=== PATIENT | male | born 1965 | race Caucasian/White ===

== ENCOUNTER 2025-02-13 18:48 | Inpatient (IN) | payer SELFPAY ==
[2025-02-13] VITALS (18 sets, daily range): BP systolic 99–164; BP diastolic 57–97; PULSE 89–95; RESP 18–28; TEMP 35.9–36.7; O2SAT 95–100; BMI 44.6
--- NOTE | 2025-02-13 18:51 | RAD_ITS ---
PROCEDURE: CHEST 1 VIEW 02/13/2025 REASON FOR EXAM: NEURO DEFICIT, ACUTE, STROKE SUSPECTED TECHNIQUE: Frontal view of the chest. COMPARISON: None FINDINGS: Lungs: The right hemidiaphragm is elevated, compared to the left of indeterminate significance and acuity. Clinical correlation with breath sounds and diaphragmatic excursion. Right lung volume is low. Mild right infrahilar atelectasis. There is no consolidation. There is no peribronchial thickening. There is no pulmonary vascular redistribution. Pleura: No significant pleural effusion seen. There is no evidence of pneumothorax. Mediastinum: There is no mediastinal widening or mediastinal shift. Heart: The cardiac silhouette appears slightly enlarged.. Ying: The pulmonary ying are not enlarged or retracted. Osseous: No acute fracture is seen. Mild degenerative changes of the spine and shoulders. RAD/Chest 1 View IMPRESSION: No radiographic evidence for acute infiltrate. - Other findings discussed above. Reading Location: [id number]
--- NOTE | 2025-02-13 18:51 | CT_ITS ---
PROCEDURE: STROKE CTA HEAD AND NECK W/CON 02/13/2025 REASON FOR EXAM: NEURO DEFICIT, ACUTE, STROKE SUSPECTED TECHNIQUE: Procedure Code: [id number].ST.HN Modality: CT Procedure: STROKE CTA HEAD AND NECK W/CON Multiplanar Sagittal and Coronal images were obtained. CONTRAST: Please see CT VOLUME: Please see CT mL One or more dose reduction techniques were used (e.g., Automated exposure control, adjustment of the mA and/or kV according to patient size, use of iterative reconstruction technique). RADIATION DOSE SUMMARY: CTDlvol: Please see CT mGy DLP: 900.46 mGycm COMPARISON: Same day noncontrast head CT FINDINGS: Aorta: The entire thoracic aorta is not included on this exam. The visualized thoracic aortic arch is not aneurysmal. No thoracic aortic dissection is seen at the visualized arch. There is atherosclerosis without hemodynamically significant thoracic aortic stenosis. Bovine branch pattern noted off the aortic arch. Visualized proximal great vessels within the superior mediastinum are tortuous suggesting longstanding systemic arterial hypertension. Bovine artery: The bovine artery is patent to its bifurcation. Brachiocephalic artery: The brachiocephalic artery is patent to its bifurcation. Subclavian arteries: The subclavian arteries are patent bilaterally to the proximal axillary arteries. There is atherosclerosis at the proximal subclavian arteries right worse than left but does not appear to be hemodynamically significant. Vertebral arteries: The vertebral arteries are nearly equally dominant and both are patent from their origin to the basilar artery without evidence of abrupt occlusion, hemodynamically significant stenosis or vessel dissection. Common carotid arteries: The common carotid arteries are patent to the common carotid bifurcations. External carotid arteries: The external carotid arteries are patent to their proximal major retromandibular branches. ICA: The internal carotid arteries are patent from their origin to the ICA terminus without evidence of an abrupt occlusion or vessel dissection. There is calcified plaque and intimal thickening at the carotid bulbs left slightly worse than right but no evidence of a hemodynamically significant stenosis bilaterally. There is mild intracranial atherosclerosis without evidence of luminal compromise. Basilar artery: The basilar artery is patent to its distal termination. Posterior cerebral arteries: The left P1 segment is not conclusively identified. The left P2 segment appears to be a direct continuation from the left internal carotid artery consistent with origin. The right P1 and P2 segments are patent. Superior cerebellar arteries: The superior cerebellar artery origins are patent bilaterally. Anteroinferior cerebellar artery origins: The anteroinferior cerebellar artery origins are visualized bilaterally. Posteroinferior cerebellar arteries: The posteroinferior cerebellar artery origins are not clearly visualized bilaterally. This may be indicate anatomic variation, vessel occlusion of indeterminate acuity or technical limitations due to small caliber vessels and limitations of this technique. Anterior cerebral arteries: A1 and A2 segments of the anterior cerebral arteries are patent. Anterior communicating artery: The A-comm is faintly visualized and appears patent. MCA: M1 segment middle cerebral artery enhancement is preserved bilaterally without an abrupt occlusion. Visible M2 segments demonstrate continuous enhancement without evidence of an acute medium vessel occlusion. Soft tissues: Mild prominence of the adenoids could be correlated clinically for significance. No tonsillar or peritonsillar abscess is seen. No prevertebral soft tissue swelling. No posterior paraspinal soft tissue hematoma. No cervical soft tissue emphysema. Thyroid: There is diffuse heterogeneity of the thyroid gland possibly with tiny nodules. Lung apices: No consolidation seen at the visualized lung apices. Osseous: Severe degenerative changes of the spine are noted with disc space loss, prominent anterior osteophytes, posterior bony ridging and facet arthropathy. No acute fracture. CT/STROKE CTA Head AND Neck W/Con IMPRESSION: No evidence of an acute intracranial or cervical large vessel arterial occlusio n. - There is atherosclerosis as discussed above. - Other incidental findings discussed above in detail. Reading Location: [id number]
--- NOTE | 2025-02-13 18:51 | CT_ITS ---
PROCEDURE: STROKE BRAIN/HEAD WITHOUT CONT 02/13/2025 REASON FOR EXAM: NEURO DEFICIT, ACUTE, STROKE SUSPECTED TECHNIQUE: Procedure Code: CTBR.ST Modality: CT Procedure: STROKE BRAIN/HEAD WITHOUT CONT Coronal and Sagittal reconstruction series were provided. One or more dose reduction techniques were used (e.g., Automated exposure control, adjustment of the mA and/or kV according to patient size, use of iterative reconstruction technique. RADIATION DOSE SUMMARY: CTDlvol: 44.99 mGy DLP: 829.85 mGycm COMPARISON: None FINDINGS: Note: Images through the base of the brain and posterior fossa including the brainstem are slightly degraded by beam hardening artifact from the adjacent calvarium. Brain: There is no evidence of acute intracranial hemorrhage. There is no focal extra-axial fluid collection. Appearance of the basal cisterns is unremarkable. There is no Chiari malformation. There is intracranial calcific atherosclerosis. No parenchymal changes are seen suggestive of cytotoxic edema to indicate an acute territorial vascular infarct. Note is made that CT changes may lag clinical findings an acute stroke. If indicated, consider follow-up imaging or diffusion-weighted MRI. There is no midline shift or herniation. No evidence of pneumocephalus. Incidental intracranial calcifications noted. Ventricles: The ventricles do not appear obstructed. Pituitary: The pituitary fossa does not appear enlarged. The pituitary stalk does not appear deviated. Soft tissues: No pericranial scalp hematoma. Osseous: No acute calvarial fracture. No suspicious bone lesion. Visualized paranasal sinuses: Mucosal septation, mucosal thickening and/or trace amount of thickened fluid noted within the left sphenoid sinus. Mastoids: No fluid or opacification of mastoid air cells. Middle ear cavities: The visualized middle ear cavities are not opacified. CT/STROKE Brain/Head without Cont IMPRESSION: No evidence of acute territorial major vessel infarct, mass effect or acute int racranial hemorrhage. - Mild left sphenoid sinusitis. - Other findings and recommendations discussed above. Reading Location: [id number]
--- NOTE | 2025-02-13 18:51 | EKG12_ITS ---
Test Reason : DYSRHYTHMIA Blood Pressure : */* mmHG Vent. Rate : 92 BPM Atrial Rate : 92 BPM P-R Int : 154 ms QRS Dur : 104 ms QT Int : 384 ms P-R-T Axes : 35 58 96 degrees QTcB Int : 474 ms Sinus rhythm with Premature atrial complexes Possible Anterior infarct , age undetermined Abnormal ECG Confirmed by GERMAINE CAZARES, NIK ([id number]), technical editor LIZZETTE PERALTA ([id number]) on 02/14/2025 7:59:29 AM Referred By: Confirmed By: NIK HERRON MD
--- OUTSIDE RECORDS SUMMARY | 2025-02-13 18:57 | XMS RPT_ITS | CCD ---
Author Organization [facility] Inform ion [facility] Care Team Providers Care Javascript Application Developer Name Role Phone Lana CAZARES, Palomo Archibald Unavailable GOLDIE YUN Attending Unavailable GOLDIE YUN Primary Care Unavailable OGLDIE YUN Admitting Unavailable COURT ROBLES - ROOF SERVICE TECHNICIANGOLDIE Primary Care Phys ician COURT ROBLES - ROOF SERVICE TECHNICIANGOLDIE Primary Care U ARACELIS Sparks MD Attending Unavailable COURT ROBLES - ROOF SERVICE TECHNICIAN, GOLDIE Gonzalez Primary Care U WINSOME Shaikh DO Attending Unavailable Medications Current Medications Medication Drug Class(es) Dates Sig (Normalized) Sig (Original) acetaminophen 325 mg / HYDROcodone bitartrate 5 mg oral tablet (1 source) Opioid Agonist Start: 02-24-2023 End: 02-27-2023 take 1 tablet by mouth every six hours as needed for pain [place] 325- 5 mg oral tablet Dose = 1 tab(s), Oral, q6h, PRN for pain, X 3 day(s), # 12 tab(s), 0 Refill(s), Knee sprain, 159 Start Date: 02/24/23 Stop Date: 02/27/23 Status: Ordered Completed/Discontinued Medications Medication Drug Class(es) Dates Sig (Normalized) Sig (Original) glimepiride 4 mg oral tablet (2 sources) Sulfonylurea Start: 02-08-2022 End: 05-09-2022 glimepiride 4 mg oral tablet Dose : 4 mg = 1 tab(s), Oral, qDay, # 90 tab(s), 0 Refill(s), Pharmacy: [id number], 189.5, cm, 02/08/22 10:03:00 EDT, Height, kg, 02/08/22 10:03:00 EDT, Dosing Weight Start Date: 02/08/22 Stop Date: 05/09/22 Status: Ordered Start: 07-08-2018 take 1 tablet by isak th once daily AMARYL 4 MG TABS one tablet by mouth daily GLIMEPIRIDE [id number] Palomo Schwartz MD hydroCHLOROthiazide 12.5 mg / lisinopril 10 mg oral tablet (2 sources) Thiazide Diuretic, Angiotensin Converting Enzyme Inhibitor Start: 02-08-2022 End: 05-09-2022 take 1 tablet by mouth once daily hydrochlorothiazide-lisinopril 12.5 mg-10 mg oral tablet Dose = 1 tab(s), Oral, Daily, # 90 tab(s), 0 Refill(s), Pharmacy: [id number], 189.5, cm, 02/08/22 10:03:00 EDT, Height, kg, 02/08/22 10:03:00 EDT, Dosing Weight Start Date: 02/08/22 Stop Date: 05/09/22 Status: Ordered Start: 07-08-2018 take 1 tablet by isak th once daily LISINOPRIL-HYDROCHLOROTHIAZIDE 20-12.5 M G TABS one tablet by mouth daily LISINOPRIL-HYDROCHLOROTHIAZIDE [id number] Palomo Schwartz MD levothyroxine sodium 0.025 mg oral tablet (2 sources) l-Thyroxine Start: 02-08-2022 End: 05-09-2022 levothyroxine 25 mcg (0.025 mg) oral tablet Dose : 25 mcg = 1 tab(s), Oral, qDay, # 90 tab(s), 0 Refill(s), Pharmacy: [id number], 189.5, cm, 02/08/22 10:03:00 EDT, Height, kg, 02/08/22 10:03:00 EDT, Dosing Weight Start Date: 02/08/22 Stop Date: 05/09/22 Status: Ordered Start: 07-08-2018 take 1 tablet by isak th once daily EUTHYROX 25 MCG TABS one tablet by mouth daily LEVOTHYROXINE SODIUM [id number] Palomo Schwartz MD lovastatin 20 mg oral tablet (2 sources) HMG-CoA Reductase Inhibitor Start: 02-08-2022 End: 05-09-2022 lovastatin 20 mg oral tablet Dose : 20 mg = 1 tab(s), Oral, qDay, # 90 tab(s), 0 Refill(s), Pharmacy: [facility], 189.5, cm, 02/08/22 10:03:00 EDT, Height, kg, 02/08/22 10:03:00 EDT, Dosing Weight Start Date: 02/08/22 Stop Date: 05/09/22 Status: Ordered Start: 07-08-2018 take 1 tablet by isak th once daily ALTOPREV 20 MG [id number] one tablet by mouth daily LOVASTATIN [id number] Palomo Schwartz MD metFORMIN hydrochloride 500 mg oral tablet (2 sources) Biguanide Start: 02-08-2022 End: 05-09-2022 metFORMIN 500 mg oral tablet (IR) Dose : 1,000 mg = 2 tab(s), Oral, BID, # 360 tab(s), 0 Refill(s), Pharmacy: [facility], DM type 2, goal HbA1c Start Date: 02/08/22 Stop Date: 05/09/22 Status: Ordered Start: 07-08-2018 take 1 tablet by isak th twice daily GLUCOPHAGE 500 MG TABS one tablet by mouth twice a day METFORMIN HCL [id number] Palomo Schwartz MD pioglitazone 45 mg oral tablet (2 sources) Peroxisome Proliferator Receptor alpha Agonist, Peroxisome Proliferator Receptor gamma Agonist, Thiazolidinedione Start: 02-08-2022 End: 05-09-2022 pioglitazone 45 mg oral tablet Dose : 45 mg = 1 tab(s), Oral, Daily, # 90 tab(s), 0 Refill(s), Pharmacy: [facility], DM type 2, goal HbA1c Start Date: 02/08/22 Stop Date: 05/09/22 Status: Ordered Start: 07-08-2018 take 1 tablet by isak th once daily ACTOS TABS one tablet by mouth daily PIOGLITAZONE HCL TABS [id number] Palomo Schwartz MD sildenafil 50 mg oral tablet (1 source) Phosphodiesterase 5 Inhibitor Start: 12-22-2020 End: 02-20-2021 Viagra 50 mg oral tablet Dose : 50 mg = 1 tab(s), Oral, qDay, PRN, # 9 tab(s), 1 Refill(s), Pharmacy: [facility], Erectile dysfunction, 189.5, cm, 12/22/20 9:38:00 EDT, Height, kg, 12/22/20 9:38:00 EDT, Dosing Weight Start Date: 12/22/20 Stop Date: 02/20/21 Status: Ordered Vitamin D3 1000 intl units (25 mcg) oral tablet (1 source) Start: 06-30-2020 End: 07-30-2020 Vitamin D3 1000 intl units (25 mcg) oral tablet Dose : 1,000 International_Unit = 1 tab(s), Oral, qDay, # 30 tab(s), 0 Refill(s), Pharmacy: [facility], 189.5, cm, 06/30/20 10:41:00 EST, Height, kg, 06/30/20 10:41:00 EST, Dosing Weight Start Date: 06/30/20 Stop Date: 07/30/20 Status: Ordered Problems Active Problems Problem Classification Problem Date Documented Date Episodic/Chronic Diabetes mellitus without complication (1 source) Type 2 diabetes mellitus 07-16-2019 Chronic Disorders of lipid metabolism (1 source) Hyperlipidemia 07-16-2019 Chronic Essential hypertension (1 source) Hypertensive disorder 07-16-2019 Chronic Osteoarthritis (2 sources) Unilateral primary osteoarthritis, left knee; Translations: [Unilateral primary osteoarthritis, right knee] Onset: 07-08-2018 07-08-2018 Chronic Other upper respiratory infections (2 sources) Acute upper respiratory infection, unspecified; Translations: [Acute upper respiratory infection, unspecified] Onset: 03-28-2020 Episodic Residual codes; unclassified (1 source) Increased body mass index 07-16-2019 Episodic Sprains and strains (1 source) Sprain of knee; Translations: [Sprain of unspecified site of unspecified knee, initial encounter] Onset: 02-24-2023 Episodic Thyroid disorders (1 source) Hypothyroidism 07-16-2019 Chronic Unclassified (1 source) COVID-19; Translations: [COVID-19] Onset: 03-28-2020 Unclassified (1 source) Non-smoker 02-08-2022 Unclassified (1 source) Patient encounter status 07-16-2019 Past or Other Problems Problem Classification Problem Date Documented Da te Episodic/Chronic Unclassified (1 source) Problem Results Test Name Value Interpretation Reference Range Facility XR TIBIA/FIBULA 2 VIEWS VINNIE Mathew 08-14-2024 XR TIBIA/FIBULA 2 VIEWS RIGHT ORIGINAL EXAMINATION: TWO XRAY VIEWS OF THE RIGHT TIBIA/FIBULA 08/14/2024 1:14 pm COMPARISON: Same day tibia fibula radiograph. HISTORY: ORDERING SYSTEM PROVIDED HISTORY: Reason for Exam: foreign body in leg FINDINGS: Interval removal of the previously described lateral foreign body projecting at the inferior 1/3 fibula. No definite residual retained radiopaque foreign body. No acute fracture or dislocation. No other significant change. IMPRESSION: Interval foreign body removal without definite retained radiopaque foreign body. I have reviewed this report and agree with the resident findings and interpretation. Interpreted by: Esvin Bahena MD Preliminary Report By: Elijah Morales Electronically signed By Evsin Bahena MD Dictated Date: 08/14/2024 1:16:25 PM Prelim Date: 08/14/2024 1:18:54 PM Sign Date: 08/14/2024 1:37:09 PM Ordering Provider: WINSOME MALAGON [facility] XR TIBIA/FIBULA 2 VIEWS RIGHT ORIGINAL EXAMINATION: Exam Title:TWO XRAY VIEWS OF THE RIGHT TIBIA/FIBULA Completed Time: 08/14/2024 11:37 am Procedure Description:TIBIA and FIBULA RIGHT COMPARISON: No direct comparison available. HISTORY: ORDERING SYSTEM PROVIDED HISTORY: Reason for Exam: foreign body in leg FINDINGS: Metallic density nail superimposes the distal tibia in the frontal and lateral views. Cortical penetration is not included or excluded by this exam. Mild soft tissue swelling and injury site. Numerous dermal calcifications. No evidence for displaced fracture dislocation or destructive osseous process. Moderate degenerative right knee joint change. IMPRESSION: [] 1. Positive for intact single foreign body. It is unclear if periosteal/cortical penetration has occurred. Close follow-up recommended. Interpreted by: Yaw Chandra DO Preliminary Report By: Yaw Chandra DO Electronically signed By Yaw Chandra DO Dictated Date: 08/14/2024 11:50:44 AM Prelim Date: 08/14/2024 11:53:21 AM Sign Date: 08/14/2024 11:53:21 AM Ordering Provider: WINSOME MALAGON Normal [facility] XR KNEE THREE VIEWS RIGHTon 02-24-2023 XR KNEE THREE VIEWS RIGHT ORIGINAL EXAMINATION: THREE XRAY VIEWS OF THE RIGHT KNEE 02/24/2023 12:31 pm COMPARISON: None. HISTORY: ORDERING SYSTEM PROVIDED HISTORY: Reason for Exam: pt states he twisted rt knee 1 day ago. Nonspecific pain when standing. Pain FINDINGS: There are diffuse soft tissue calcifications. Surgical defects are seen in the patella. There is no acute fracture. The bones are in anatomic alignment. There are mild to moderate tricompartmental degenerative changes. Chondrocalcinosis of the lateral meniscus is noted. Patellar enthesophytes at the insertion of the quadriceps tendon and origin of the patellar tendon are noted. There is a small joint effusion. There is no radiopaque foreign body. IMPRESSION: No acute osseous abnormality. Small joint effusion. Interpreted by: Estevan Bellamy MD Preliminary Report By: Estevan Bellamy MD Electronically signed By Estevan Bellamy MD Dictated Date: 02/24/2023 12:34:06 PM Prelim Date: 02/24/2023 12:36:05 PM Sign Date: 02/24/2023 12:36:05 PM Ordering Provider: DOROTEO ROBERSON Normal [facility] ([place]) CORONAVIRUS PCR [CCL]on COVID 19 Result RUG HOOKER HAND Positive Abnormal [facility] Comment on above: Result Comment: Posi tive for COVID19 (SARS CoV2) by PCR.(*) This test was developed and its performance characteristics determined by [facility]. This test has been authorized by FDA under an Emergency Use Authorization (EUA). This test has been validated in accordance with the FDA's Guidance Document Policy for Diagnostics Testing in Laboratories Certified to Perform High Complexity Testing under CLIA prior to Emergency use Authorization for Coronavirus Disease 2019 during the Public Health Emergency issued on July 24, 2019. [facility] [employer] [address] [place] [address] Marcelino Mejía III, M.D. [id number] Performed By: #### [id number] #### [facility],[address] [place] [address] COVID 19 Source RUG HOOKER HAND Nasopharyngeal Swab Normal [facility] Comment on above: Result Comment: Call ed to and read back by: Tayo Harris [place] [id number] Marie Corrected on 03/30 AT 0756: Previously reported as NASAL Performed By: #### [id number] #### [facility],[address] [place] [address] REF LAB REPORT Positive Normal [facility] Comment on above: Performed By: #### 2 [id number] #### [facility],[address] [place] [address] Coronavirus 2019on 0 COVID 19 Source RUG HOOKER HAND Normal [facility] Comment on above: Result Comment: Naso pharyngeal Swab Called to and read back by: ArminDarioAndrew Harris [place] [id number] Corrected on 03/30 AT 0756: Previously reported as NASAL [id number] Marie Corrected on 03/30 AT 0756: Previously reported as NASAL COVID 19 Result RUG HOOKER HAND Abnormal Negative for COVID19 (SARS CoV2) by PCR. [facility] Comment on above: Result Comment: Posi tive for This test was developed and its performance characteristics determined by [facility] [place]. This test has been authorized by FDA under an Emergency Use Authorization (EUA). This test has been validated in accordance with the FDA's Guidance Document Policy for Diagnostics Testing in Laboratories Certified to Perform High Complexity Testing under CLIA prior to Emergency use Authorization for Coronavirus Disease 2019 during the Public Health Emergency issued on July 24, 2019. COVID19 (SARS This test was developed and its performance characteristics determined by [facility]. This test has been authorized by FDA under an Emergency Use Authorization (EUA). This test has been validated in accordance with the FDA's Guidance Document Policy for Diagnostics Testing in Laboratories Certified to Perform High Complexity Testing under CLIA prior to Emergency use Authorization for Coronavirus Disease 2019 during the Public Health Emergency issued on July 24, 2019. CoV2) by This test was developed and its performance characteristics determined by [facility] [place]. This test has been authorized by FDA under an Emergency Use Authorization (EUA). This test has been validated in accordance with the FDA's Guidance Document Policy for Diagnostics Testing in Laboratories Certified to Perform High Complexity Testing under CLIA prior to Emergency use Authorization for Coronavirus Disease 2019 during the Public Health Emergency issued on July 24, 2019. PCR.(*) This test was developed and its performance characteristics determined by [facility]. This test has been authorized by FDA under an Emergency Use Authorization (EUA). This test has been validated in accordance with the FDA's Guidance Document Policy for Diagnostics Testing in Laboratories Certified to Perform High Complexity Testing under CLIA prior to Emergency use Authorization for Coronavirus Disease 2019 during the Public Health Emergency issued on July 24, 2019. Clinical Summary: HMSPatient IDon 07-08-[address] [facility] Work Phone: Clinical Summary: Scanned RO S Summaryon 07-08-2018 endocrine ROS Complains [place] [facility] Work Phone: endocrine system, review of, comments Diabetes [facility] Work Phone: genitourinary review of systems, E&M Denies [facility] Work Phone: Lymphocytes #/vol (Bld) Denies [facility] Work Phone: ROS cardiovascular E&M Denies [facility] Work Phone: ROS ENT E&M Denies [place] [facility] Work Phone: ROS gastrointestinal E&M Denies [facility] Work Phone: ROS general E&M Denies [facility] Work Phone: ROS Musculoskeletal comments Joint Pain,Stiffness,Arthrit is [facility] Work Phone: ROS musculoskeletal E&M Complains [facility] Work Phone: ROS neurological E&M Denies [facility] Work Phone: ROS psychiatric E&M Denies [facility] Work Phone: ROS Pulmonary comment Sleep Apnea [facility] Work Phone: ROS pulmonary E&M Complains [facility] Work Phone: ROS skin E&M Denies [facility] Work Phone: Office Visit: New/Est - 1st visit with physician, Rm: 107-08-2018 NEGATED: Highlighted rowProtein mass conc Done [place] [facility] Work Phone: NEGATED: Highlighted rowTobacco smoking status NHIS Tobacco smoking status NHIS [facility] Work Phone: NEGATED: Highlighted rowxray history of the bilateral knee on 06/17/2018 at [place] [facility] Work Phone: Clinical Summary: Scanned Hi story Summaryon 07-06-2018 cause of , father Heart attack [facility] Work Phone: cause of , mother Cancer [facility] Work Phone: Data entered by patient, allergy list I don't have any Drug Allergies [facility] Work Phone: data entered by patient, Employer Name employed [facility] Work Phone: Data entered by patient, history of past surgeries Foot surgeryKnee surgery otherTonsillectomy [facility] Work Phone: data entered by patient, mother's medical history Cancer [facility] Work Phone: data entered by patient, past medical history ArthritisDiabetes - insulin dependentDiabetic neuropathyHigh blood pressureObesity [facility] Work Phone: data entered by patient, social history, marital status [facility] Work Phone: data entered by patient, social history, 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 Work Phone: father of patient is alive or [facility] Work Phone: Housing Type: apartment, house, long-term, trailer, none house [facility] Work Phone: housing unit size (asthma environmental history, housing) (from single family to don't know) 1 floor [facility] Work Phone: medical history of patient's brother(s) My brother's health history is unknown [facility] Work Phone: medical history of patient's sister My sister's health history is unknown [facility] Work Phone: mother of patient is alive or [facility] Work Phone: Number of dependent children No [facility] Work Phone: Vital Signs Date Time Vital Sign Value Performing Clinician Facility 02-24-2023 12:04-0400 Body height 183 cm ARACELIS LIZ MD [facility] 02-24-2023 12:04-0400 Body temperature 98.06 [degF] ARACELIS LIZ MD [facility] 02-24-2023 12:04-0400 Body weight 159 kg ARACELIS LIZ MD [facility] 02-24-2023 12:04-0400 Diastolic Blood Pressure Non-Invasive 82 1 ARACELIS LIZ MD [facility] 02-24-2023 12:04-0400 Heart rate 91 /min ARACELIS LIZ MD [facility] 02-24-2023 12:04-0400 Respiratory rate 20 /min ARACELIS LIZ MD [facility] 02-24-2023 12:04-0400 Systolic Blood Pressure Non-Invasive 156 1 ARACELIS LIZ MD [facility] NEGATED: Highlighted [id number] 08:21-0500 BMI (Body Mass Index) 56.83 kg/m2 Mukul Stewart LPN [facility] Work Phone: NEGATED: Highlighted [id number] 08:21-0500 BP Diastolic 72 mm[Hg] Mukul Stewart LPN [facility] Work Phone: NEGATED: Highlighted [id number] 08:21-0500 BP Systolic 112 mm[Hg] Mukul Stewart PORCELAIN FINISHER [facility] Work Phone: NEGATED: Highlighted [id number] 08:21-0500 Height 180.34 cm Mukul Stewart PORCELAIN FINISHER [facility] Work Phone: NEGATED: Highlighted [id number] 08:21-0500 Height 180 cm Mukul Stewart PORCELAIN FINISHER [facility] Work Phone: NEGATED: Highlighted [id number] 08:21-0500 Pulse (Heart Rate) 78 /min Mukul Stewart LPN [facility] Work Phone: NEGATED: Highlighted [id number] 08:21-0500 Weight 184.16 kg Mukul Stewart PORCELAIN FIN[employer]ER [facility] Work Phone: NEGATED: Highlighted [id number] 08:21-0500 Weight 185 kg Mukul Stewart HERBER [facility] Work Phone: Encounters Encounter Date Encounter Type Care Provider Facility Start: 08-14-2024 End: 08-14-2024 Emergency department patient visit GOLDIE YUN CATALYST CONCENTRATION OPERATOR - ROOF SERVICE TECHNICIAN Facility:[facility] Start: 02-24-2023 End: 02-24-2023 Emergency department patient visit GOLDIE YUN CATALYST CONCENTRATION OPERATOR - ROOF SERVICE TECHNICIAN Facility: Start: 02-24-2023 End: 02-24-2023 Emergency department patient visit ARACELIS LIZ MD [facility] Start: 03-28-2020 End: 03-28-2020 Patient encounter procedure GOLDIE YUN [facility] Start: 07-08-2018 End: 07-08-2018 Patient encounter procedure Palomo Schwartz MD Work Phone: [facility] Work Phone: Procedures Date Procedure Procedure Detail Performing Clinician Start: 07-08-2018 End: 07-08-2018 Blood pressure within normal parameters - no follow-up required Palomo Schwartz MD Work Phone: Start: 07-08-2018 End: 07-08-2018 BMI documented as above normal parameters - follow-up documented Palomo Schwartz MD Work Phone: Start: 07-08-2018 End: 07-08-2018 Documentation of current medications Palomo Schwartz MD Work Phone: Start: 07-08-2018 End: 07-08-2018 Osteoarthritis assess Palomo novak MD Work Phone: Start: 07-08-2018 End: 07-08-2018 Pain assessment documented as positive - follow-up documented Palomo Schwartz MD Work Phone: Start: 07-08-2018 End: 07-08-2018 Tobacco non-user Palomo Sue i, MD Work Phone: Arthroscopy of knee ARACELIS MARTI MD Comment on above: left meniscal repair Entire toe (body structure) ARACELIS LIZ MD Comment on above: right 3rd toe nail r emoved Tonsillectomy and adenoidectomy ARACELIS LIZ MD Plan of Treatment Date Care Activity Detail Author Start: 07-08-2018 End: 07-08-2018 Appointment Appointment [facility] Work Phone: Immunizations Immunization Date Immunization Notes Care Provider Fa cili 04-23-2018 influenza virus vaccine, unspecified formulation ARACELIS LIZ MD [facility] 04-25-2017 influenza virus vaccine, unspecified formulation ARACELIS LIZ MD [facility] No information available. Mukul Stewart LPN [facility] Work Phone: Payers Date Payer Category Payer Self-pay 1965 Unknown [id number] 1965 Unknown [id number] 1965 Unknown [id number] Unknown [id number] Social History Date Type Detail Facility Start: 11-19-2019 Tobacco smoking status Never smoked tobacco (finding) [facility] Sex Assigned At Male [facility] NEGATED: Highlighted rowStart: 07-08-2018 End: 07-08-2018 Alcohol use ETOH USE No [facility] Work Phone: NEGATED: Highlighted rowStart: 07-08-2018 End: 07-08-2018 Details of drug misuse behavior DRUG USE No [facility] Work Phone: NEGATED: Highlighted rowStart: 07-08-2018 End: 07-08-2018 Assertion Former smoker [facility] [place] [facility] Work Phone: Medical Equipment Procedure Code Equipment Code Equipment Origin al Text Equipment Identifier Dates See Instructions , Si pen needle daily seconday to DM#2 ICD-10 250.00 Quantity: 1 box of 32G/5mm pen needles. RF: 6, # 1 EA, 6 Refill(s), Pharmacy: [facility], DM type 2, goal HbA1c < 7%, 189.5, cm, 06/30/20 10:41:00 EST, Height, 192, kg, 06/30/20 10:41:00 EST, Dosing Weight Start: 06-30-2020 Functional Status Date Assessment Result Facility 02-24-2023 Functional Status Up ad toby [facility] 02-24-2023 Functional Status Standard Safet y ID band on, Call device within reach, Bed in low position, Wheels locked, Visitor at bedside [facility] [facility] Mental Status Date Assessment Result Facility 02-24-2023 Mental Status Orientation Oriented x 4 [facility] Discharge instructions 02-24-2023 Note Date & Type Note Facility 02-24-2023 Hospital Discharg e instructions Patient Education 02/24/2023 12:58:49 Knee Sprain Knee Sprain A sprain is an injury to the ligaments or capsule that holds a joint together. There are no broken bones. Most sprains take 3 to 6 weeks to heal. If it a severe sprain where the ligament is completely torn, it can take months to recover. Most knee sprains are treated with a splint, knee immobilizer brace, or elastic wrap for support. Severe sprains may rarely require surgery. Home care Stay off the injured leg as much as possible until you can walk on it without pain. If you have a lot of pain with walking, crutches or a walker may be prescribed. (These can be rented or purchased at many pharmacies and surgical or orthopedic supply stores). Follow your healthcare provider's advice about when to begin putting weight on that leg. Keep your leg elevated to reduce pain and swelling. When sleeping, place a pillow under the injured leg. When sitting, support the injured leg so it is above heart level. This is very important during the first 48 hours. Apply an ice pack over the injured area for 15 to 20 minutes every 3 to 6 hours. You should do this for the first 24 to 48 hours. You can make an ice pack by filling a plastic bag that seals at the top with ice cubes and then wrapping it with a thin towel. Continue to use ice packs for relief of pain and swelling as needed. As the ice melts, be careful to avoid getting your wrap, splint, or cast wet. After 48 hours, apply heat (warm shower or warm bath) for 15 to 20 minutes several times a day, or alternate ice and heat. You can place the ice pack directly over the splint. If you have to wear a ewta-iss-jjkr knee brace, you can open it to apply the ice pack, or heat, directly to the knee. Never put ice directly on the skin. Always wrap the ice in a towel or other type of cloth. You may use shcr-kqp-mytyakl pain medicine to control pain, unless another pain medicine was prescribed. If you have chronic liver or kidney disease or ever had a stomach ulcer or gastrointestinal bleeding, talk with your healthcare provider before using these medicines. If you were given a splint, keep it completely dry at all times. Bathe with your splint out of the water, protected with 2 large plastic bags, sealed with rubber bands or tape at the top end. If a fiberglass splint gets wet, you can dry it with a dining chair seat cushion trimmer set to cool. If you have a webo-ggp-iwen knee brace, you can remove this to bathe, unless told otherwise. Follow-up care Follow up with your doctor as advised. Any X-rays you had today don t show any broken bones, breaks, or fractures. Sometimes fractures don t show up on the first X-ray. Bruises and sprains can sometimes hurt as much as a fracture. These injuries can take time to heal completely. If your symptoms don t improve or they get worse, talk with your doctor. You may need a repeat X-ray. If X-rays were taken, you will be told of any new findings that may affect your care. Call 911 Call 911 if you have: Shortness of breath Chest pain When to seek medical advice Call your healthcare provider right away if any of these occur: The splint or knee immobilizer brace becomes wet or soft The fiberglass cast or splint remains wet for more than 24 hours Pain or swelling increases The injured leg or toes become cold, blue, numb, or tingly [id number] [employer]. [address] [place] [address]. All rights reserved. This information is not intended as a substitute for professional medical care. Always follow your healthcare professional's instructions. Follow Up Care 02/24/2023 11:57:15 With:Go to emergency room if symptoms worsen Address:Unknown When:2-4 days With:GOLDIE YUN APRN - ROOF SERVICE TECHNICIAN Address: [address] [place] [address]- When:2-4 days [facility] Clinical Note 02-24-2023 Note Date & Type Note Facility 02-24-2023 Note Discharge Instructions Thank you for allowing [facility] to assist you with your healthcare needs. The following is important discharge information regarding your hospital visit. Diagnosis from Today's Visit Knee pain-swelling Knee sprain What to Do Next Instructions from Your Care Team No qualifying data available. Post Acute Orders No qualifying data available. You Need to Schedule the Following Appointments Follow Up with Go to emergency room if symptoms worsen When Within 2-4 days Follow Up with GOLDIE YUN APRN ROOF SERVICE TECHNICIAN When Within 2-4 days Where: [address] [place] [address]- Allergies NKA Medications Please ask your primary doctor or pharmacist before taking any other medication not listed, including over the counter drugs, herbal medications, vitamins and or supplements as they may interact with your home medications. What How Much When Why Instructions Last Dose New acetaminophen-hydrocodone ([place] 325- 5 mg oral tablet) 1 tab(s) by mouth Every 6 hours as needed for for pain Knee sprain Duration: 3 Days Printed Prescription Unchanged cholecalciferol (Vitamin D3 1000 intl units (25 mcg) oral tablet) 1 tab(s) by mouth Once a day Duration: 30 Days Unchanged DME (Pen needles 5 mm) See instructions DM type 2, goal HbA1c < 7% Si pen needle daily seconday to DM#2 ICD-10 250.00 Quantity: 1 box of 32G/ 5mm pen needles. RF: 6 Unchanged glimepiride (glimepiride 4 mg oral tablet) 1 tab(s) by mouth Once a day Duration: 90 Days Unchanged hydrochlorothiazide-lisinopril (hydrochlorothiazide-lisinopril 12.5 mg-10 mg oral tablet) 1 tab(s) by mouth Every day Duration: 90 Days Unchanged levothyroxine (levothyroxine 25 mcg (0.025 mg) oral tablet) 1 tab(s) by mouth Once a day Duration: 90 Days Unchanged lovastatin (lovastatin 20 mg oral tablet) 1 tab(s) by mouth Once a day Duration: 90 Days Unchanged metFORMIN (metFORMIN 500 mg oral tablet (IR)) 2 tab(s) by mouth Two (2) times a day DM type 2, goal HbA1c < 7% Duration: 90 Days Unchanged pioglitazone (pioglitazone 45 mg oral tablet) 1 tab(s) by mouth Every day DM type 2, goal HbA1c < 7% Duration: 90 Days Unchanged sildenafil (Viagra 50 mg oral tablet) 1 tab(s) by mouth Once a day Erectile dysfunction Duration: 30 Days PRN Please take this list to your next doctor s visit. Bring all medications you take, including over the counter medications, herbals and other supplements with you to your doctor s visit. Patients and families are reminded to discard old lists and to update any records with all medication providers or retail pharmacies. Medication Leaflets acetaminophen and hydrocodone (a SEET a MIN oh fen and lucie HUANG done) Lortab Elixir, Verdrocet What is the most important information I should know about acetaminophen and hydrocodone? MISUSE OF OPIOID MEDICINE CAN CAUSE ADDICTION, OVERDOSE, OR . Keep the medication in a place where others cannot get to it. Taking opioid medicine during may cause life-threatening withdrawal symptoms in the . Fatal side effects can occur if you use opioid medicine with alcohol, or with other drugs that cause drowsiness or slow your breathing. Stop taking this medicine and call your doctor right away if you have skin redness or a rash that spreads and causes blistering and peeling. What is acetaminophen and hydrocodone? Acetaminophen and hydrocodone is a combination medicine used to relieve moderate to severe pain. Acetaminophen and hydrocodone contains an opioid medicine, and may be habit-forming. Acetaminophen and hydrocodone may also be used for purposes not listed in this medication guide. What should I discuss with my healthcare provider before taking acetaminophen and hydrocodone? You should not use this medicine if you are allergic to acetaminophen or hydrocodone, or if you have: severe asthma or breathing problems; or a blockage in your stomach or intestines. Tell your doctor if you have ever had: breathing problems, sleep apnea (breathing stops during sleep); liver disease; a drug or alcohol addiction; kidney disease; a head injury or seizures; urination problems; or problems with your thyroid, pancreas, or gallbladder. If you use opioid medicine while you are , your baby could become dependent on the drug. This can cause life-threatening withdrawal symptoms in the baby after it is born. Babies born dependent on opioids may need medical treatment for several weeks. Ask a doctor before using opioid medicine if you are . Tell your doctor if you notice severe drowsiness or slow breathing in the nursing baby. How should I take acetaminophen and hydrocodone? Follow all directions on your prescription label. Never take this medicine in larger amounts, or for longer than prescribed. An overdose can damage your liver or cause . Tell your doctor if you feel an increased urge to use more of this medicine. Never share this medicine with another person, especially someone with a history of drug abuse or addiction. MISUSE CAN CAUSE ADDICTION, OVERDOSE, OR . Keep the medicine in a place where others cannot get to it. Selling or giving away this medicine is against the law. Measure liquid medicine carefully. Use the dosing syringe provided, or use a medicine dose-measuring device (not a kitchen spoon). If you need surgery or medical tests, tell the doctor ahead of time that you are using this medicine. You should not stop using this medicine suddenly. Follow your doctor's instructions about tapering your dose. Store at room temperature away from moisture and heat. Keep track of your medicine. You should be aware if anyone is using it improperly or without a prescription. Do not keep leftover opioid medication. Just one dose can cause in someone using this medicine accidentally or improperly. Ask your pharmacist where to locate a drug take-back disposal program. If there is no take-back program, flush the unused medicine down the toilet. What happens if I miss a dose? Since this medicine is used for pain, you are not likely to miss a dose. Skip any missed dose if it is almost time for your next dose. Do not use two doses at one time. What happens if I overdose? Seek emergency medical attention or call the Poison Help line at . An overdose of this medicine can be fatal, especially in a child or other person using the medicine without a prescription. Overdose symptoms may include nausea, vomiting, sweating, severe drowsiness, pinpoint pupils, slow breathing, or no breathing. Your doctor may recommend you get naloxone (a medicine to reverse an opioid overdose) and keep it with you at all times. A person caring for you can give the naloxone if you stop breathing or don't wake up. Your caregiver must still get emergency medical help and may need to perform CPR (cardiopulmonary resuscitation) on you while waiting for help to arrive. Anyone can buy naloxone from a pharmacy or local health department. Make sure any person caring for you knows where you keep naloxone and how to use it. What should I avoid while taking acetaminophen and hydrocodone? Avoid driving or operating machinery until you know how this medicine will affect you. Dizziness or drowsiness can cause falls, accidents, or severe injuries. Do not drink alcohol. Dangerous side effects or could occur. Ask a doctor or pharmacist before using any other medicine that may contain acetaminophen (sometimes abbreviated as APAP). Taking certain medications together can lead to a fatal overdose. What are the possible side effects of acetaminophen and hydrocodone? Get emergency medical help if you have signs of an allergic reaction: hives; difficulty breathing; swelling of your face, lips, tongue, or throat. Opioid medicine can slow or stop your breathing, and may occur. A person caring for you should give naloxone and/or seek emergency medical attention if you have slow breathing with long pauses, blue colored lips, or if you are hard to wake up. In rare cases, acetaminophen may cause a severe skin reaction that can be fatal. This could occur even if you have taken acetaminophen in the past and had no reaction. Stop taking this medicine and call your doctor right away if you have skin redness or a rash that spreads and causes blistering and peeling. Call your doctor at once if you have: noisy breathing, sighing, shallow breathing, breathing that stops; a light-headed feeling, like you might pass out; liver problems--nausea, upper stomach pain, tiredness, loss of appetite, dark urine, nura-colored stools, jaundice (yellowing of the skin or eyes); low cortisol levels-- nausea, vomiting, loss of appetite, dizziness, worsening tiredness or weakness; o high levels of serotonin in the body--agitation, hallucinations, fever, sweating, shivering, fast heart rate, muscle stiffness, twitching, loss of coordination, nausea, vomiting, diarrhea. Serious breathing problems may be more likely in older adults and in those who are debilitated or have wasting syndrome or chronic breathing disorders. Common side effects include: dizziness, drowsiness, feeling tired; nausea, vomiting, stomach pain; constipation; or headache. This is not a complete list of side effects and others may occur. Call your doctor for medical advice about side effects. You may report side effects to FDA at 2-761-MGF-9312. What other drugs will affect acetaminophen and hydrocodone? You may have breathing problems or withdrawal symptoms if you start or stop taking certain other medicines. Tell your doctor if you also use an antibiotic, antifungal medication, heart or blood pressure medication, seizure medication, or medicine to treat HIV or hepatitis C. Opioid medication can interact with many other drugs and cause dangerous side effects or . Be sure your doctor knows if you also use: cold or allergy medicines, bronchodilator asthma/COPD medication, or a diuretic ('water pill'); medicines for motion sickness, irritable bowel syndrome, or overactive bladder; other opioids--opioid pain medicine or prescription cough medicine; a sedative like Valium--diazepam, alprazolam, lorazepam, Xanax, Klonopin, Versed, and others; drugs that make you sleepy or slow your breathing--a sleeping pill, muscle relaxer, medicine to treat mood disorders or mental illness; drugs that affect serotonin levels in your body--a stimulant, or medicine for depression, Parkinson's disease, migraine headaches, serious infections, or nausea and vomiting. This list is not complete. Other drugs may affect acetaminophen and hydrocodone, including prescription and dqix-iho-nhiqyes medicines, vitamins, and herbal products. Not all possible interactions are listed here. Where can I get more information? Your doctor or pharmacist can provide more information about acetaminophen and hydrocodone. Remember, keep this and all other medicines out of the reach of children, never share your medicines with others, and use this medication only for the indication prescribed. Every effort has been made to ensure that the information provided by [employer]. ('[employer]') is accurate, up-to-date, and complete, but no guarantee is made to that effect. Drug information contained herein may be time sensitive. [employer] information has been compiled for use by healthcare practitioners and consumers in the [place] and therefore [employer] does not warrant that uses outside of the [place] are appropriate, unless specifically indicated otherwise. [employer] (now [employer]s drug information does not endorse drugs, diagnose patients or recommend therapy. [employer] drug information is an informational resource designed to assist licensed healthcare practitioners in caring for their patients and/or to serve consumers viewing this service as a supplement to, and not a substitute for, the expertise, skill, knowledge and judgment of healthcare practitioners. The absence of a warning for a given drug or drug combination in no way should be construed to indicate that the drug or drug combination is safe, effective or appropriate for any given patient. [employer] does not assume any responsibility for any aspect of healthcare administered with the aid of information [employer] provides. The information contained herein is not intended to cover all possible uses, directions, precautions, warnings, drug interactions, allergic reactions, or adverse effects. If you have questions about the drugs you are taking, check with your doctor, nurse or pharmacist. Copyright 9707-1081 [employer]. Version: 19.. Revision Date: 01/13/2023. Education Materials Knee Sprain A sprain is an injury to the ligaments or capsule that holds a joint together. There are no broken bones. Most sprains take 3 to 6 weeks to heal. If it a severe sprain where the ligament is completely torn, it can take months to recover. Most knee sprains are treated with a splint, knee immobilizer brace, or elastic wrap for support. Severe sprains may rarely require surgery. Home care Stay off the injured leg as much as possible until you can walk on it without pain. If you have a lot of pain with walking, crutches or a walker may be prescribed. (These can be rented or purchased at many pharmacies and surgical or orthopedic supply stores). Follow your healthcare provider's advice about when to begin putting weight on that leg. Keep your leg elevated to reduce pain and swelling. When sleeping, place a pillow under the injured leg. When sitting, support the injured leg so it is above heart level. This is very important during the first 48 hours. Apply an ice pack over the injured area for 15 to 20 minutes every 3 to 6 hours. You should do this for the first 24 to 48 hours. You can make an ice pack by filling a plastic bag that seals at the top with ice cubes and then wrapping it with a thin towel. Continue to use ice packs for relief of pain and swelling as needed. As the ice melts, be careful to avoid getting your wrap, splint, or cast wet. After 48 hours, apply heat (warm shower or warm bath) for 15 to 20 minutes several times a day, or alternate ice and heat. You can place the ice pack directly over the splint. If you have to wear a cvlm-wza-jimv knee brace, you can open it to apply the ice pack, or heat, directly to the knee. Never put ice directly on the skin. Always wrap the ice in a towel or other type of cloth. You may use dmet-kfp-udwumzj pain medicine to control pain, unless another pain medicine was prescribed. If you have chronic liver or kidney disease or ever had a stomach ulcer or gastrointestinal bleeding, talk with your healthcare provider before using these medicines. If you were given a splint, keep it completely dry at all times. Bathe with your splint out of the water, protected with 2 large plastic bags, sealed with rubber bands or tape at the top end. If a fiberglass splint gets wet, you can dry it with a dining chair seat cushion trimmer set to cool. If you have a tvgl-jng-vdmq knee brace, you can remove this to bathe, unless told otherwise. Follow-up care Follow up with your doctor as advised. Any X-rays you had today don t show any broken bones, breaks, or fractures. Sometimes fractures don t show up on the first X-ray. Bruises and sprains can sometimes hurt as much as a fracture. These injuries can take time to heal completely. If your symptoms don t improve or they get worse, talk with your doctor. You may need a repeat X-ray. If X-rays were taken, you will be told of any new findings that may affect your care. Call 911 Call 911 if you have: Shortness of breath Chest pain When to seek medical advice Call your healthcare provider right away if any of these occur: The splint or knee immobilizer brace becomes wet or soft The fiberglass cast or splint remains wet for more than 24 hours Pain or swelling increases The injured leg or toes become cold, blue, numb, or tingly [phone] [employer]. [address] [place] [address]. All rights reserved. This information is not intended as a substitute for professional medical care. Always follow your healthcare professional's instructions. Additional Information VACCINATE! IT SAVES LIVES! Members of the community who have not yet received the COVID-19 vaccine and would like to receive it can visit one of [facility] vaccine clinics. There are many vaccine clinic locations within the [facility]. For locations and available times, please visit [email or web address]/. It is important to note that some COVID mobile vaccine clinics are held outdoors and may be canceled in rainy or stormy conditions. To learn more about pediatric vaccinations (ages 5-11), we invite you to visit the [facility] webpage. [email or web address] -[email or web address] To learn more about the COVID-19 vaccine, we invite you to visit the CDC website for a list of frequently asked questions. https://www.cdc.gov/coronavirus/2019-n cov/vaccines/faq.html [employer] [facility] Patient Portal Access Instructions: Stay connected with your healthcare team and access your personal medical information anytime with the [employer] [facility] Patient Portal. If you would like a full copy of your medical records please contact the [facility] Medical Records Department Friday through Friday between 8a.m. and 4:30p.m. Please follow the directions below to access the portal: 1.Access the email account you provided upon registration to the [facility].2.Look for an invitation email from [facility].3.Open the email and access the invitation link: Accept Invitation to [facility]4.Fill in the required garland to create your account. Sign into [email or web address] with your username and password that you created in the above steps to stay up to date. You can then view a summary of results, a summary of your visits, and the ability to download your summaries to your computer or send the information securely to a physician. Remember that your healthcare information is confidential, so carefully consider who you will allow to register on the [employer] Patient Portal for access to your information. You can also access the [employer] Patient Portal on the [employer] evita. Simply click on Health Records under Health Data and then click on the [employer] logo. HOW TO SAFELY DISPOSE OF PRESCRIPTION MEDICATIONS Please use one of the following methods to safely dispose of your unused medications. 1.Use a drug disposal kit: the drug disposal pouch allows you to safely discard your old and unused drugs. Ask your nurse to give you one when you are discharged.2.Visit a local take-back location: Many local pharmacies and police departments have programs that collect old and unwanted prescription drugs. Call your local pharmacy or go to http://[employer].Virax/1B7Po4m to find one close to you.3.Make use of household items: Use cat litter or old coffee grounds to dispose medications if other options are not available. Mix your drugs with these household products, seal them in an airtight container and throw it into the garbage. Call [facility]: [phone] to be sure your drugs can be disposed of in this way. Some medicines may require a different approach.4.Never flush your medications down the toilet. IF YOU HAVE BEEN PRESCRIBED AN OPIOIDS FOR PAIN If you have been prescribed an opioid (such as hydrocodone, oxycodone or morphine), it is critical to understand the possible side effects and risks of opioid pain medications. Even when taken as directed, opioids can have several side effects including: Tolerance, meaning you might need to take more of a medication for the same pain relief. Nausea, vomiting and/or constipation. Sleepiness, dizziness, dry mouth, confusion, depression or itching. Physical dependence, meaning you have withdrawal symptoms when a medication is stopped ? this can develop within a few days. KNOW YOUR RESPONSIBILITIES It is important to know exactly how much and how often to take the opioid pain medications you are prescribed. Never take opioids in higher amounts or more often than prescribed. Do not combine opioids with alcohol or other drugs that cause drowsiness, such as benzodiazepines, also known as benzos, including diazepam and alprazolam, muscle relaxants or sleep aids. Never sell or share prescription opioids. This is illegal. Store opioids in a secure place and out of reach of others (including children, family, friends and visitors). The last page(s) of this document has been signed and retained as a CHART COPY Signatures Patient Education Materials Knee Sprain Medication Leaflets acetaminophen and hydrocodone My discharge plan and instructions have been reviewed and explained to me and I,JOYCE VILA understand my current condition and have read and understand these discharge instructions. I have received a written copy of the plan/instructions. If I have questions, I am aware that I should contact my doctor. 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 HISTORY: ORDERING SYSTEM PROVIDED HISTORY: Reason for Exam: pt states he twisted rt knee 1 day ago. Nonspecific pain when standing. Pain FINDINGS: There are diffuse soft tissue calcifications. Surgical defects are seen in the patella. There is no acute fracture. The bones are in anatomic alignment. There are mild to moderate tricompartmental degenerative changes. Chondrocalcinosis of the lateral meniscus is noted. Patellar enthesophytes at the insertion of the quadriceps tendon and origin of the patellar tendon are noted. There is a small joint effusion. There is no radiopaque foreign body. IMPRESSION: No acute osseous abnormality. Small joint effusion. Interpreted by: Estevan Bellamy MD Preliminary Report By: Estevan Bellamy MD Electronically signed By Estevan Bellamy MD Dictated Date: 02/24/2023 12:34:06 PM Prelim Date: 02/24/2023 12:36:05 PM Sign Date: 02/24/2023 12:36:05 PM Ordering Provider: DOROTEO ROBERSON [facility] Evaluation + Plan note 08-08-2022 Laboratory Note Date & Type Note Facility 08-08-2022 Evaluation + Plan note Future Scheduled TestsThyroid Stimulating Hormone 08/08/22Free T4 08/08/22A1C Hemoglobin 05/10/22A1C Hemoglobin 08/08/22Lipid Profile 08/08/22Microalbumin Level Urine 08/08/22Complete Metabolic Panel 08/08/22 [facility] Hospital course Narrative Note Date & Type Note Facility Hospital course Narrative No data available for this section [facility] Chief Complaint Chief Complaint Description Start Date bilateral knee pain Preliminary chief co mplaint data, not yet signed by the author as of Instructions Instruction Description Start Date CompletedPatient advised to follow-up with Primary Care Physician for BMI management. Advance Directives There may be information available, but it has not been provided by the sender. No Advanced Directives Records FoundNo Advanced Directives Records FoundNo Advanced Directives Records FoundNo Advanced Directives Records Found Assessments There may be information available, but it has not been provided by the sender. Review of System There may be information available, but it has not been provided by the sender. Family History There may be information available, but it has not been provided by the sender.No Family History Records FoundNo Family History Records Found No data available for this section No Family History Records FoundNo Family History Records Found History of Present Illness There may be information available, but it has not been provided by the sender. Summary Purpose Additional Source Comments Reason for Visit (unrecogniz ed section and content) Reason For Visit Description New/Est - 1st visit with physician 07/08 Preliminary reason f or visit data, not yet signed by the author as of bilateral knee pain (unrecognized sect ion and content) No Status Records FoundNo Status Records FoundNo Status Records FoundNo Status Records Found INFORMATION SOURCE (unrecogn ized section and content) DATE CREATED AUTHOR 03/30/2020 [facility] DATE CREATED AUTHOR AUTHOR'S ORGANIZ ATION 04/03/2020 [facility] DATE CREATED AUTHOR AUTHOR'S ORGANIZ ATION 03/09/2023 [facility] ([place]) DATE CREATED AUTHOR AUTHOR'S ORGANIZ ATION 08/20/2024 [facility] Patient Care team informatio n (unrecognized section and content) Care Team Personnel Name: COURT GOLDIE Lisa CATALYST CONCENTRATION OPERATOR - ROOF SERVICE TECHNICIAN 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 Advanced Instrument Inspector Member Role: Primary Care Physician Address: Address: [address] [place] [id number]- Name: ARACELIS LIZ MD Position: ED Physician Member Role: ED Physician Address: Address: [address] [place], [place] [address] Name: GEOFFREY Cook Position: BUCKY RN Member Role: ED RN Name: DOROTEO ROBERSON DO Position: Resident Member Role: Resident Address: Address: [address] [place] [address] ED Resident [place], [place] [address] Care Team Related Persons Name: CELESTINE VILA Address: Home [address] [place], [place] [id number] FOR RECORDS PERTAINING TO PATIENTS WHO ARE OR HAVE BEEN ENROLLED IN A CHEMICAL DEPENDENCY/SUBSTANCEABUSE PROGRAM, SOME INFORMATION MAY BE OMITTED. This clinical summary was aggregated from multiple sources. Caution should be exercised in using it in the provision of clinical care. This summary normalizes information from multiple sources, and as a consequence, information in this document may materially change the coding, format and clinical context of patient data. In addition, data may be omitted in some cases. CLINICAL DECISIONS SHOULD BE BASED ON THE PRIMARY CLINICAL RECORDS. [facility] [employer] provides no warranty or guarantee of the accuracy or completeness of information in this document.
[2025-02-13 19:22] LABS: Hematocrit 43.7 % (40-54); Hemoglobin 15.4 g/dL (13.0-16.5); Immature Granulocytes Count 0.100 X10^3/uL (0.0-0.0); Mean Corp Hgb Conc 35.2 g/dL (32-36); Mean Corpuscular Volume 86.4 fL (80-94); Mean Platelet Vol. 10.3 fl (6.2-12.0); NRBC Flagged by Analyzer 0 % (0-5); Platelet Count 186 K/mm3 (150-450); RBC Distribution Width CV 13.4 % (11.6-14.6); RBC Distribution Width SD 42.2 fl (35.1-43.9); Red Blood Count 5.06 M/mm3 (4.6-6.2); White Blood Count 9.3 K/mm3 (4.4-11.0)
[2025-02-13] MEDS: Tenecteplase 25 MG in Syringe 1 EACH 3600 MG IV (19:29)
[2025-02-13] MEDS: 0.9% Saline Lock 10 ML Syringe IV (19:30)
[2025-02-13 19:31] LABS: Prothrombin Time (Protime)PT. 13.4 SECONDS (11.7-14.9)
[2025-02-13 19:32] LABS: Partial Thromboplast Time 25.0 Seconds (24.1-36.2)
--- NOTE | 2025-02-13 19:39 | CM.ED ---
Social Work Date of referral: 02/13/2025 Reason for referral: Stroke alert Patient Ombudsperson arrived as patient was incoming by squad for possible stroke. No family present at that time. Patient taken back for imaging. (18:50) Patient Ombudsperson met with patient's out in the hallway while patient's nurse was in the room. Patient's was tearful and voice being in shock. Patient Ombudsperson provided emotional support and shortly after, patient's daughter arrived and patient's daughter and jeffrey to be at patient's bedside. No additional needs identified at this time. (19:39) Brionna Bhatia, FURNITURE ASSEMBLY SUPERVISOR, EXPANDED DUTY DENTAL ASSISTANT
--- NOTE | 2025-02-13 19:44 | PCM.HP.STD ---
HPI - General General Date of Admission: 02/13/25 Date of Service: 02/13/25 Chief Complaint: L sided weakness, facial droop, slurred speech. HPI Narrative The patient is a 59 y/o M w/ PMHx: JACLYN non-complaint with PAP therapy, Morbid obesity, HTN, HLD, IDDM, Tobacco use (cigars) who presents to the [facility] ED on 02/13/25 with history of onset at 1730 left-sided weakness and slurred speech resulting in fall with no head trauma or loss of consciousness prompting EMS call and transition to the hospital for evaluation. Initial [facility] stroke assessment in the ED with left arm and left leg drift in addition to mild to moderate aphasia with a total score of 3. ED blood glucose on arrival 445. [place] in a normal state of health. Workup in the ED included T98.1, heart rate 90, BP 145/89, respiratory rate 20, 100% on room air with most recent repeat vitals T98.1, heart rate 89, BP 146/83, respiratory rate 20, 98% room air, CBC with WBC 9.3, hemoglobin 15.4, platelet 186 with increased immature granulocytes, unremarkable coags, BMP with chloride 95, BUN/Cryan 14/0.81, GFR 100, glucose 385, troponin pending upon request evaluation of patient, CT brain with no acute intracranial finding with mild left-sided sinusitis, CTA head and neck final read pending upon requested evaluation of patient however per neurology noted M2 occlusion but not amenable to thrombectomy, chest x-ray pending per ED upon request evaluation of patient, EKG SR without acute evidence of ischemia. Stroke alert initiated prior to patient arrival given symptoms with [facility] telestroke alert evaluation with at that time [facility] stroke assessment with 2 for partial paralysis, 1 for drift on each side, 1 for mild to moderate dysarthria and 1 for some personal inattention/extinction with a total score of 6 with recommendation for initiation of tenecteplase with noted right M2 occlusion however neurology noted that it is not amenable to thrombectomy thus recommended continued evaluation at [facility] and admission/evaluation. In the ED patient administered maintenance IV fluids in addition to tenecteplase 25 mg IV x 1 per neurology direction. [facility] Medical History (Updated 02/13/25 @ 20:[address] Cristiana Gonzalez MD) JACLYN (obstructive sleep apnea) Morbid obesity Tobacco use HLD (hyperlipidemia) HTN (hypertension) Diabetes mellitus, type 2 Home Medications ?Medication ?Instructions ?Recorded ?Last Taken ?Type A 150 mcg-fenugreek 70 cap PO 02/13/25 Unknown History bu-izru-lcgcbzp-b.ffscf-zlfyyptq-itccuv capsule (Blood Sugar Support) blood pressure support PO DAILY 02/13/25 Unknown History Allergy/AdvReac Type Severity Reaction Status Date / Time No Known Allergies Allergy Verified 02/13/25 19:46 Family History (Updated 02/13/25 @ 20:[address] Cristiana Gonzalez MD) Mother Cancer Possibly metastatic GB cancer. Father , at 53 secondary to massive NM. CAD (coronary artery disease) Heart disease Hypertension Myocardial infarction Surgical History (Updated 02/13/25 @ 20:[address] Cristiana Gonzalez MD) History of tonsillectomy and adenoidectomy History of surgery on lower extremity Social History (Updated 02/13/25 @ 20:[address] Cristiana Gonzalez MD) household members: spouse Smoking Status: Current every day smoker tobacco type: cigars per week: 35 alcohol intake: never substance use type: does not use ROS ROS Narrative Admission Review of Systems: CONSTITUTIONAL: No weight loss, fever, chills, + weakness or fatigue. HEENT: Eyes: No visual loss, blurred vision, double vision or yellow sclerae. Ears, Nose, Throat: No hearing loss, sneezing, congestion, runny nose or sore throat. SKIN: No rash or itching, lesions, wounds. CARDIOVASCULAR: No chest pain, chest pressure or chest discomfort, palpitations, edema, orthopnea, syncopal events. RESPIRATORY: No shortness of breath, cough or sputum, wheezing, hemoptysis. GASTROINTESTINAL: No anorexia, nausea, vomiting or diarrhea, abdominal pain, melena, BRBPR. GENITOURINARY: No dysuria, frequency, urgency or retention. NEUROLOGICAL: + Fall, left-sided weakness, slurred speech/mild to moderate aphasia. No headache, dizziness, syncope, paralysis, ataxia, change in bowel or bladder control, seizure. MUSCULOSKELETAL: + muscle, back pain, joint pain or stiffness. HEMATOLOGIC: No anemia, bleeding or bruising. LYMPHATICS: No enlarged nodes. No history of splenectomy. PSYCHIATRIC: No history of depression or anxiety. ENDOCRINOLOGIC: No reports of sweating, cold or heat intolerance. No polyuria or polydipsia. ALLERGIES: No history of asthma, hives, eczema or rhinitis. Vital Signs Vital Signs Vital Signs: 02/13/25 19:08 02/13/25 19:18 02/13/25 19:18 Temperature 98.1 F Temperature Source Oral Pulse Rate 90 91 Respiratory Rate 20 H 18 Blood Pressure 145/89 H 146/83 H Blood Pressure Mean 107 104 Blood Pressure Source Blood Pressure Position Blood Pressure Location Pulse Ox 100 100 100 Oxygen Delivery Method Room Air Room Air Room Air 02/13/25 19:18 02/13/25 19:29 02/13/25 19:33 Temperature 98.1 F Temperature Source Oral Pulse Rate 89 93 Respiratory Rate 20 H 20 H Blood Pressure 146/83 H 146/83 H 145/89 H Blood Pressure Mean 104 107 Blood Pressure Source Monitor Monitor Blood Pressure Position Supine Semi-Fowlers Blood Pressure Location Left Arm Left Arm Pulse Ox 98 98 Oxygen Delivery Method Room Air Room Air Weight Weight: 329 lb 9.457 oz Body Mass Index (BMI) 44.6 Physical Exam Narrative Physical Examination: General: Awake, alert, oriented x 3 and cooperative, seated upright in the ED bed, tenecteplase previously administered with ongoing close evaluation, per discussion with nurse in room and based on scoring system clinically strength seems to be improving but deficits still present. Skin: Normal color, normal turgor, no icterus, no cyanosis except occasional stage ecchymoses, distal right lower extremity rash evident which has been chronic he notes. HEENT: AT/NC, EOMI, PERRLA, MMM, no carotid bruits, difficult to assess JVD given thickened neck, evident left-sided flattened nasolabial fold however does correct some with smiling and facial expressions. Lungs: CTA bilaterally, moderate effort, mild decrease BL bases, no rales, ronchi or wheezing. Heart: Regular rate and rhythm; no gallop, rub audible. Abdomen: Soft, morbidly obese, NTTP, mildly hyperactive BS, difficult to discern distention HSM given habitus. Extremities: No cyanosis, no clubbing, no significant distal pitting edema noted. Neurological: Patient awake, alert, oriented as noted, cognitive function intact; pupils equally reactive to light and accommodation, cranial nerves grossly normal aside from left-sided nasolabial fold flattening although does correct some with expressions, moving all 4 extremities however still very mild drift evident to left upper extremity but nurse notes that that is much improved since previous, some difficulty with left finger-nose but still able to perform, appropriate right finger-nose and oqrw-pe-jrux, left-sided ulju-og-ftfz without significant difficulty, sensation intact, inattention/extinction still present. Psychiatric: Affect appears normal, no acute evidence of depressive or anxiety feelings. Results Lab / Micro Data 02/13/25 19:09 02/13/25 19:09 Labs: Laboratory Results - last 24 hr 02/13/25 19:09: WBC 9.3, RBC 5.06, Hgb 15.4, Hct 43.7, MCV 86.4, MCH 30.4, MCHC 35.2, RDW Std Deviation 42.2, RDW Coeff of Chepe 13.4, Plt Count 186, MPV 10.3, Immature Gran % (Auto) 1.100 H, Neut % (Auto) 72.7 H, Lymph % (Auto) 15.7 L, Cam[place] % (Auto) 8.5, Eos % (Auto) 1.4, Baso % (Auto) 0.6, Absolute Neuts (auto) 6.7, Absolute Lymphs (auto) 1.46, Nucleated RBC % 0, PT 13.4, INR 1.0, APTT 25.0 Imaging Radiology Impression Brain CT 02/13/25 18:51 IMPRESSION: No evidence of acute territorial major vessel infarct, mass effect or acute intracranial hemorrhage. - Mild left sphenoid sinusitis. - Other findings and recommendations discussed above. Reading Location: [id number] Assessment & Plan Assessment/Plan (1) Acute CVA (cerebrovascular accident): PLAN: Plan The patient is a 59 y/o M w/ PMHx: JACLYN non-complaint with PAP therapy, Morbid obesity, HTN, HLD, IDDM, Tobacco use who presents to the [facility] ED on 02/13/25 with history of onset at 1730 left-sided weakness and slurred speech resulting in fall with no head trauma or loss of consciousness prompting EMS call and transition to the hospital for evaluation. #1. Acute left-sided facial droop, left-sided hemiplegia secondary to acute CVA secondary to right M2 occlusion status post tenecteplase administration: Will admit to ICU status post tenecteplase administration, will consult soft hat binder per protocol, will plan to obtain repeat CT head in 24 hours following tenecteplase administration versus MRI brain at that time, will obtain ECHO, PT/OT/Speech/Nutrition evaluation per protocol. Will allow permissive HTN with as needed agents per stroke protocol status post tenecteplase administration, once repeat CT head or MRI brain at that time obtained and no evidence of bleeding will immediately initiate aspirin therapy, will continue patient statin w/ AM FLP, fall precautions. Mag, TSH, FLP, HgbA1c requested. Maintain on fall and aspiration precautions. Will continue Neurology consultation initiated per ED. #2. Hypertension: Will maintain permissive HTN per stroke protocol status post neck to place administration with PRN agents per stroke order set. #3. Hyperlipidemia: Will continue home statin regimen, FLP in AM. #4. Diabetes mellitus type I with hyperglycemia I: Hold oral home regimen, continue home insulin regimen, ADA diet if cleared for oral intake following stroke protocol initiated bedside swallow evaluation, accu checks w/ ISS, HgbA1c requested, nutrition consulted per protocol. #5. Tobacco Abuse: Encouraged cessation, inpatient consultation per RT, NR if desired. #6. Morbid Obesity: Weight loss and lifestyle changes encouraged, nutrition consulted. #7. JACLYN: Patient does have PAP therapy at home but notes he does not use it, discussed at length and amenable to using CPAP currently. Encouraged continued use at discharge. #8. DVT prophylaxis: SCDs given TNK usage. #9. CODE status: Patient HCPOA and living will not in place but his who is present would be his medical decision-maker if necessary. Discussed CODE status at length including difference between FULL code, DNR-CCA and DNR-CC status. Following discussions about the differences in these status, requested Full Code status. Advanced Care Planning Face to Face Time: 16 minutes. Charges/Coding Visit Charges Inpatient E&M: 74465 Init Hosp L3 Procedures Hospitalists Procedures: 52129 Advncd Care Plan 30 Min
[2025-02-13 19:46] LABS: Anion Gap 14 (5-15); BUN 14 mg/dL (4-19); BUN/Creat Ratio 16.8 RATIO (10-20); Calcium,Total 8.9 mg/dL (7.6-11.0); Carbon Dioxide 23.7 mmol/L (21.0-32.0); Chloride 95 mmol/L (98-108); Estimated Creatinine Clearance 144.07 ml/min (50-250); Glucose 385 mg/dL (70-99); Potassium 3.8 mmol/L (3.3-5.1)
[2025-02-13 19:51] LABS: Troponin T High Sensitivity 80 ng/L (<=22)
[2025-02-13] MEDS: 0.9% Normal Saline (1000mL) 1,000 ML 100 ML IV (19:54)
[2025-02-13 20:21] LABS: Magnesium 1.8 mg/dL (1.5-2.2)
--- OUTSIDE RECORDS SUMMARY | 2025-02-13 20:22 | XMS RPT_ITS | CCD ---
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 Name Role Phone Russ Esvin Unavailable Unavailable Luis Fernando Elliott Unavailable Unavailable Lana CAZARES, Palomo Archibald Unavailable GOLDIE YUN Attending Unavailable GOLDIE YUN Primary Care Unavailable GOLDIE YUN Admitting Unavailable COURT ROBLES - MOBILE HOME INSTALLERGOLDIE Primary Care Phys ician COURT ROBLES - MOBILE HOME INSTALLERGOLDIE Primary Care U ARACELIS Sparks MD Attending Unavailable COURT ROBLES - MOBILE HOME INSTALLERGOLDIE Primary Care U WINSOME Shaikh DO Attending Unavailable Medications Current Medications Medication Drug Class(es) Dates Sig (Normalized) Sig (Original) acetaminophen 325 mg / HYDROcodone bitartrate 5 mg oral tablet (1 source) Opioid Agonist Start: 02-24-2023 End: 02-27-2023 take 1 tablet by mouth every six hours as needed for pain [address] 325- 5 mg oral tablet Dose = [...] TABS one tablet by mouth daily GLIMEPIRIDE [id number] Palomo Schwartz MD hydroCHLOROthiazide 12.5 mg / [...] TABS one tablet by mouth daily LISINOPRIL-HYDROCHLOROTHIAZIDE [id number] Palomo Schwartz MD levothyroxine sodium 0.025 mg [...] one tablet by mouth daily LEVOTHYROXINE SODIUM [id number] Palomo Schwartz MD lovastatin 20 mg oral [...] isak th once daily ALTOPREV 20 MG [id number] one tablet by mouth daily LOVASTATIN [id number] Palomo Schwartz MD metFORMIN hydrochloride 500 mg [...] by mouth twice a day METFORMIN HCL [id number] Palomo Schwartz MD pioglitazone 45 mg oral [...] tablet by mouth daily PIOGLITAZONE HCL TABS [id number] Palomo Schwartz MD sildenafil 50 mg oral [...] Documented Date Episodic/Chronic Diabetes mellitus without complication (2 sources) Diabetes mellitus without mention of complication, type II or unspecified type, not stated as uncontrolled; Translations: [Type 2 diabetes mellitus] Onset: 11-29-2016 07-16-2019 Chronic Disorders of lipid metabolism (1 source) Hyperlipidemia 07-16-2019 Chronic Essential hypertension (2 sources) Unspecified essential hypertension; Translations: [Hypertensive disorder] Onset: 11-29-2016 07-16-2019 Chronic External Injury - Fall (1 source) Late effects of accidental fall; Translations: [LATE EFF ACCIDENTAL FALL] Onset: 11-29-[address] - [address] of occurrence (1 source) Home accidents; Translations: [ACCIDENT IN HOME] Onset: 11-29-2016 Osteoarthritis (2 sources) Unilateral primary osteoarthritis, left knee; Translations: [Unilateral primary osteoarthritis, right knee] Onset: 07-08-2018 07-08-2018 Chronic Other nutritional; endocrine; and metabolic disorders (1 source) Morbid obesity; Translations: [MORBID OBESITY] Onset: 11-29-2016 Chronic Other upper respiratory infections (2 sources) Acute upper respiratory infection, unspecified; Translations: [Acute upper respiratory infection, unspecified] Onset: 03-28-2020 Episodic Residual codes; unclassified (1 source) Increased body mass index 07-16-2019 Episodic Sprains and strains (2 sources) Sprains and strains of other specified sites of knee and leg; Translations: [Sprain of knee] Onset: 11-29-2016 Episodic Thyroid disorders (1 source) Hypothyroidism 07-16-2019 Chronic Unclassified (1 source) COVID-19; Translations: [COVID-19] Onset: 03-28-2020 Unclassified (1 source) Non-smoker 02-08-2022 Unclassified (1 source) Patient encounter status 07-16-2019 Past or Other Problems Problem Classification Problem Date Documented Da te Episodic/Chronic Other aftercare (2 sources) Long-term (current) use of insulin; Translations: [Long-term (current) use of other medications] Onset: 11-29-2016 Episodic Other connective tissue disease (1 source) Late effect of tendon injury; Translations: [LATE EFFEC TENDON INJURY] Onset: 11-29-2016 Episodic Unclassified (1 source) Problem Results Test Name Value Interpretation Reference Range Facility XR TIBIA/FIBULA 2 VIEWS [facility] 08-14-2024 XR TIBIA/FIBULA 2 VIEWS RIGHT ORIGINAL [...] Report By: Elijah Morales Electronically signed By Esvin Bahena MD Dictated Date: 08/14/2024 1:16:25 PM Prelim Date: 08/14/2024 1:18:54 PM Sign Date: 08/14/2024 1:37:09 PM Ordering Provider: WINSOME MALAGON [facility] XR TIBIA/FIBULA 2 VIEWS RIGHT ORIGINAL [...] 08/14/2024 11:53:21 AM Ordering Provider: WINSOME MALAGON [facility] XR KNEE THREE VIEWS RIGHTon 02-24-2023 XR [...] 12:36:05 PM Ordering Provider: DOROTEO ROBERSON Normal [facility] ([place]) CORONAVIRUS PCR [CCL]on COVID 19 Result [facility] Positive Abnormal [facility] Comment on above: Result Comment: Posi tive for COVID19 (SARS CoV2) by PCR.(*) This test was developed and its performance characteristics determined by [facility] [place]. This test has been authorized by FDA under an Emergency Use Authorization (EUA). This test has been validated in accordance with the FDA's Guidance Document Policy for Diagnostics Testing in Laboratories Certified to Perform High Complexity Testing under CLIA prior to Emergency use Authorization for Coronavirus Disease 2019 during the Public Health Emergency issued on July 24, 2019. [facility] [address] [place] [address] Marcelino Mejía III, M.D. [id number] Performed By: #### 2 [id number] #### [place] [id number] COVID 19 Source [facility] Nasopharyngeal Swab Normal [facility] Comment on above: Result Comment: Call ed to and read back by: Tayo Nation [id number] Marie Corrected on 03/30 AT 0756: Previously reported as NASAL Performed By: #### 2 [id number] #### [place] [id number] REF LAB REPORT Positive Normal [facility] Comment on above: Performed By: #### 2 [id number] #### [place] [id number] Coronavirus 2019on 0 COVID 19 Source [facility] Normal [facility] Comment on above: Result Comment: Naso pharyngeal Swab Called to and read back by: Tayo Nation [id number] Corrected on 03/30 AT 0756: Previously reported as NASAL [id number] Marie Corrected on 03/30 AT 0756: Previously reported as NASAL COVID 19 Result [facility] Abnormal Negative for COVID19 (SARS CoV2) by PCR. [facility] Comment on above: Result Comment: Posi tive for This test was developed and its performance characteristics determined by [facility] [place]. This test has been authorized by FDA [...] developed and its performance characteristics determined by [facility] [place]. This test has been authorized by FDA [...] developed and its performance characteristics determined by [facility] [place]. This test has been authorized by FDA [...] developed and its performance characteristics determined by [facility] [place]. This test has been authorized by FDA under an Emergency Use Authorization (EUA). This test has been validated in accordance with the FDA's Guidance Document Policy for Diagnostics Testing in Laboratories Certified to Perform High Complexity Testing under CLIA prior to Emergency use Authorization for Coronavirus Disease 2019 during the Public Health Emergency issued on July 24, 2019. Clinical Summary: HMSPatient IDon 07-08-2018 [facility] Work Phone: Clinical Summary: Scanned RO S Summaryon 07-08-2018 endocrine ROS Complains [place] [facility] Work Phone: endocrine system, review of, comments Diabetes [facility] Work Phone: genitourinary review of systems, E&M Denies [facility] Work Phone: Lymphocytes #/vol (Bld) Denies [facility] Work Phone: ROS cardiovascular E&M Denies [facility] Work Phone: ROS ENT E&M Denies [facility] Work Phone: ROS gastrointestinal E&M Denies [facility] Work Phone: ROS general E&M Denies [facility] Work Phone: ROS Musculoskeletal comments Joint Pain,Stiffness,Arthrit is [facility] Work Phone: ROS musculoskeletal E&M Complains [facility] Work Phone: ROS neurological E&M Denies [facility] Work Phone: ROS psychiatric E&M Denies C[facility] Work Phone: ROS Pulmonary comment Sleep Apnea [facility] Work Phone: ROS pulmonary E&M Complains [facility] Work Phone: ROS skin E&M Denies [facility] Work Phone: Office Visit: New/Est - 1st visit with physician, Rm: 1on 07-08-2018 NEGATED: Highlighted rowProtein mass conc Done [facility] Work Phone: NEGATED: Highlighted rowTobacco smoking status NHIS Tobacco smoking status NHIS [facility] Work Phone: NEGATED: Highlighted rowxray history of the bilateral knee on 06/17/2018 at [facility] Work Phone: Clinical Summary: Emma Felder story Summaryon 07-06-2018 cause of , father Heart attack [facility] Work Phone: cause of , mother Cancer [facility] Work Phone: Data entered by patient, allergy list I don't have any Drug Allergies [facility] Work Phone: data entered by patient, Employer Name employed [facility] Work Phone: Data entered by patient, history of past surgeries Foot surgeryKnee surgery otherTonsillectomy [facility] Work Phone: data entered by patient, mother's medical history Cancer [facility] Work Phone: data entered by patient, past medical history ArthritisDiabetes - insulin dependentDiabetic neuropathyHigh blood pressureObesity [facility] Work Phone: data entered by patient, social history, marital status [facility] Work Phone: data entered by patient, social history, 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 Work Phone: father of patient is alive or [facility] Work Phone: Housing Type: apartment, house, intermediate, trailer, none house [facility] Work Phone: housing unit size (asthma environmental history, housing) (from single family to don't know) 1 floor [facility] Work Phone: medical history of patient's brother(s) My brother's health history is unknown [facility] Work Phone: medical history of patient's sister My sister's health history is unknown [facility] Work Phone: mother of patient is alive or [facility] Work Phone: Number of dependent children No [facility] Work Phone: Vital Signs Date Time Vital Sign Value Performing Clinician Facility 02-24-2023 12:04-0400 Body height 183 cm ARACELIS LIZ MD [facility] 02-24-2023 12:04-0400 Body temperature 98.06 [degF] ARACELIS LIZ MD [facility] 02-24-2023 12:04-0400 Body weight 159 kg ARACELIS LIZ MD [facility] 02-24-2023 12:04-0400 Diastolic Blood Pressure Non-Invasive 82 1 ARACELIS LIZ MD [facility] 02-24-2023 12:04-0400 Heart rate 91 /min ARACELIS LIZ MD [facility] 02-24-2023 12:04-0400 Respiratory rate 20 /min ARACELIS LIZ MD [facility] 02-24-2023 12:04-0400 Systolic Blood Pressure Non-Invasive 156 1 ARACELIS LIZ MD [facility] NEGATED: Highlighted [id number] 08:21-0500 BMI (Body Mass Index) 56.83 kg/m2 Mukul Stewart LPN [facility] Work Phone: NEGATED: Highlighted [id number] 08:21-0500 BP Diastolic 72 mm[Hg] Mukul Stewart LPN [facility] Work Phone: NEGATED: Highlighted [id number] 08:21-0500 BP Systolic 112 mm[Hg] Mukul Stewart LPN [facility] Work Phone: NEGATED: Highlighted [id number] 08:21-0500 Height 180.34 cm Mukul Stewart LPN [facility] Work Phone: NEGATED: Highlighted [id number] 08:21-0500 Height 180 cm Mukul Stewart LPN [facility] Work Phone: NEGATED: Highlighted [id number] 08:21-0500 Pulse (Heart Rate) 78 /min Mukul Stewart LPN [facility] Work Phone: NEGATED: Highlighted [id number] 08:21-0500 Weight 184.16 kg Mukul Stewart AUTO CLAIM REPRESENTATIVE [facility] Work Phone: NEGATED: Highlighted [id number] 08:0500 Weight 185 kg Mukul Stewart AUTO CLAIM REPRESENTATIVE [facility] Work Phone: Encounters Encounter Date Encounter Type Care Provider Facility Start: 08-14-2024 End: 08-14-2024 Emergency department patient visit GOLDIE YUN [facility]ISH[facility] - [facility] Facility:[facility] Start: 02-24-2023 End: 02-24-2023 Emergency department patient visit GOLDIE YUN MOLD FINISHER - [facility] [facility] Facility: Start: 02-24-2023 End: 02-24-2023 Emergency department patient visit ARACELIS LIZ MD [facility] Start: 03-28-2020 End: 03-28-2020 Patient encounter procedure GOLDIE YUN [facility] Start: 07-08-2018 End: 07-08-2018 Patient encounter procedure Palomo Schwartz MD Work Phone: [facility] Work Phone: Start: 09-15-2014 End: 09-15-2014 [facility] Procedures Date Procedure Procedure Detail Performing Clinician [...] non-user Palomo Sue i, MD Work Phone: Start: 09-15-2014 Quadricepsplasty Esvin Solano Arthroscopy of knee ARACELIS MARTI MD Comment on above: left meniscal repair Entire toe (body structure) ARACELIS LIZ MD Comment on above: right 3rd toe nail r emoved Tonsillectomy and adenoidectomy ARACELIS LIZ MD Plan of Treatment Date Care Activity Detail Author Start: 07-08-2018 End: 07-08-2018 Appointment Appointment [facility] Work Phone: Immunizations Immunization Date Immunization Notes Care Provider Fa cili 04-23-2018 influenza virus vaccine, unspecified formulation ARACELIS LIZ MD [facility] 04-25-2017 influenza virus vaccine, unspecified formulation ARACELIS LIZ MD [facility] No information available. Mukul Stewart LPN [facility] Work Phone: Payers Date Payer Category Payer Self-pay 1965 Unknown [id number] 1965 Unknown [id number] 1965 Unknown [id number] Unknown [id number] Unknown [id number] Social History Date Type Detail Facility Start: 11-19-2019 Tobacco smoking status Never smoked tobacco (finding) [facility] Sex Assigned At Male [facility] NEGATED: Highlighted rowStart: 07-08-2018 End: 07-08-2018 Alcohol use ETOH USE No [facility] Work Phone: NEGATED: Highlighted rowStart: 07-08-2018 End: 07-08-2018 Details of drug misuse behavior DRUG USE No [facility] Work Phone: NEGATED: Highlighted rowStart: 07-08-2018 End: 07-08-2018 Assertion Former smoker [facility] Work Phone: Medical Equipment Procedure Code [...] Facility 02-24-2023 Functional Status Up ad toby [facility] 02-24-2023 Functional Status Standard Safet y ID band on, Call device within reach, Bed in low position, Wheels locked, Visitor at bedside [facility] Mental Status Date Assessment Result Facility 02-24-2023 Mental Status Orientation Oriented x 4 [facility] Discharge instructions 02-24-2023 Note Date & [...] splint. If you have to wear a vwbc-lgv-hine knee brace, you can open it to apply the ice pack, or heat, directly to the knee. Never put ice directly on the skin. Always wrap the ice in a towel or other type of cloth. You may use jdmn-rfu-odgmlmu pain medicine to control pain, unless another [...] wet, you can dry it with a education department chair set to cool. If you have a xjjo-aax-qgwx knee brace, you can remove this to [...] toes become cold, blue, numb, or tingly 2187-2008 [employer]. [address] [place] [address]. All rights reserved. This information is not intended as a substitute for professional medical care. Always follow your healthcare professional's instructions. Follow Up Care 02/24/2023 11:57:15 With:Go to emergency room if symptoms worsen Address:Unknown When:2-4 days With:GOLDIE YUN MOLD FINISHER - [employer] Address: [address] [facility] [place] [place] [address]- When:2-4 days [facility] Clinical Note 02-24-2023 Note Date & Type Note Facility 02-24-2023 Note Discharge Instructions Thank you for allowing [facility] to assist you with your healthcare needs. [...] days Follow Up with GOLDIE YUN APRN - [employer]BI[employer] HOME INSTALLER When Within 2-4 days Where: [address] [facility] [place] [place] [address]- Allergies NKA Medications Please ask your primary doctor or pharmacist before taking any other medication not listed, including over the counter drugs, herbal medications, vitamins and or supplements as they may interact with your home medications. What How Much When Why Instructions Last Dose New acetaminophen-hydrocodone ([address] 325- 5 mg oral tablet) 1 tab(s) [...] may report side effects to FDA at [phone]-GNU-3499. What other drugs will affect acetaminophen and [...] affect acetaminophen and hydrocodone, including prescription and gqfx-quz-hfqlkoy medicines, vitamins, and herbal products. Not all [...] to ensure that the information provided by [employer]. ('[employer]') is accurate, up-to-date, and complete, but no guarantee is made to that effect. Drug information contained herein may be time sensitive. [employer] information has been compiled for use by healthcare practitioners and consumers in the [place] and therefore [employer] does not warrant that uses outside of the [place] are appropriate, unless specifically indicated otherwise. [employer]s drug information does not endorse drugs, diagnose patients or recommend therapy. [employer]s drug information is an informational resource designed [...] effective or appropriate for any given patient. [employer] does not assume any responsibility for any aspect of healthcare administered with the aid of information [employer] provides. The information contained herein is not intended to cover all possible uses, directions, precautions, warnings, drug interactions, allergic reactions, or adverse effects. If you have questions about the drugs you are taking, check with your doctor, nurse or pharmacist. Copyright 6165-9490 [employer]. Version: 19.. Revision Date: 01/13/2023. Education Materials [...] splint. If you have to wear a ieed-jdy-wgbj knee brace, you can open it to apply the ice pack, or heat, directly to the knee. Never put ice directly on the skin. Always wrap the ice in a towel or other type of cloth. You may use bnda-fao-grcbpvd pain medicine to control pain, unless another [...] wet, you can dry it with a education department chair set to cool. If you have a tusr-lti-pnhw knee brace, you can remove this to [...] toes become cold, blue, numb, or tingly [id number] [employer]. [address] [place] [address]. All rights reserved. This information is not intended as a substitute for professional medical care. Always follow your healthcare professional's instructions. Additional Information VACCINATE! IT SAVES LIVES! Members of the community who have not yet received the COVID-19 vaccine and would like to receive it can visit one of [facility] vaccine clinics. There are many vaccine clinic locations within the [facility]. For locations and available times, please visit www.gettheshot.coronavirus.[place].gov/. It is important to note that some COVID mobile vaccine clinics are held outdoors and may be canceled in rainy or stormy conditions. To learn more about pediatric vaccinations (ages 5-11), we invite you to visit the [facility] webpage. [email or web address]/pages/[email or web address]-Bxojv-Tlgfhilvaac-Frequently-Asked -Questions.html To learn more about the COVID-19 vaccine, we invite you to visit the CDC website for a list of frequently asked questions. https://www.cdc.gov/coronavirus/2019-n cov/vaccines/faq.html [email or web address] Patient Portal Access Instructions: Stay connected with your healthcare team and access your personal medical information anytime with the [facility] Patient Portal. If you would like a full copy of your medical records please contact the [facility] Medical Records Department Friday through Friday between 8a.m. and 4:30p.m. Please follow the directions below to access the portal: 1.Access the email account you provided upon registration to the [facility].2.Look for an invitation email from [facility].3.Open the email and access the invitation link: Accept Invitation to [facility]4.Fill in the required garland to create your account. Sign into www.[employer] with your username and password that you [...] you will allow to register on the [facility] Patient Portal for access to your information. You can also access the [facility] Patient Portal on the [employer] evita. Simply click on Health Records under Health Data and then click on the [employer] logo. HOW TO SAFELY DISPOSE OF PRESCRIPTION [...] Call your local pharmacy or go to http://bit.[email or web address]ell[employer] Network/7N0Yg2r to find one close to you.3.Make use of household items: Use cat litter or old coffee grounds to dispose medications if other options are not available. Mix your drugs with these household products, seal them in an airtight container and throw it into the garbage. Call [facility]: [phone] to be sure your drugs can be [...] been reviewed and explained to me and ICADENCE DONALD L understand my current condition and have read and understand these discharge instructions. I have received a written copy of the plan/instructions. If I have questions, I am aware that I should contact my doctor. 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 Signature: _ Date/Time: Relationship to Patient: Witness Name/Signature: Date/Time: [facility] Clinical Note 02-24-2023 Note Date & [...] 02/24/2023 12:36:05 PM Ordering Provider: DOROTEO ROBERSON [facility] Evaluation + Plan note 08-08-2022 Laboratory Note Date & Type Note Facility 08-08-2022 Evaluation + Plan note Future Scheduled TestsThyroid Stimulating Hormone 08/08/22Free T4 08/08/22A1C Hemoglobin 05/10/22A1C Hemoglobin 08/08/22Lipid Profile 08/08/22Microalbumin Level Urine 08/08/22Complete Metabolic Panel 08/08/22 [facility] Hospital course Narrative Note Date & Type Note Facility Hospital course Narrative No data available for this section [facility] Summary Purpose Family History No Family History Records FoundThere may be information available, but it has not been provided by the sender.No Family History Records FoundNo Family History Records Found No data available for this section No Family History Records FoundNo Family History Records Found Advance Directives No Advanced Directives Records FoundThere may be information available, but it has not been provided by the sender.No Advanced Directives Records FoundNo Advanced Directives Records FoundNo Advanced Directives Records FoundNo Advanced Directives Records Found Chief Complaint Chief Complaint Description Start Date bilateral knee pain Preliminary chief co mplaint data, not yet signed by the author as of Instructions Instruction Description Start Date CompletedPatient advised to follow-up with Primary Care Physician for BMI management. Assessments There may be information available, but it has not been provided by the sender. Review of System There may be information available, but it has not been provided by the sender. History of Present Illness There may be information available, but it has not been provided by the sender. Additional Source Comments (unrecognized sect ion and content) No Status Records FoundNo Status Records FoundNo Status Records FoundNo Status Records FoundNo Status Records Found INFORMATION SOURCE (unrecogn ized section and content) DATE CREATED AUTHOR 11/19/2017 [facility] DATE CREATED AUTHOR AUTHOR'S ORGANIZ ATION 03/30/2020 [facility] DATE CREATED AUTHOR AUTHOR'S ORGANIZ ATION 04/03/2020 [facility] DATE CREATED AUTHOR AUTHOR'S ORGANIZ ATION 03/09/2023 [facility] ([place]) DATE CREATED AUTHOR AUTHOR'S ORGANIZ ATION 08/20/2024 [facility] Reason for Visit (unrecogniz ed section and content) Reason For Visit Description New/Est - 1st visit with physician 07/08 Preliminary reason f or visit data, not yet signed by the author as of bilateral knee pain Patient Care team informatio n (unrecognized section and content) Care Team Personnel Name: GOLDIE YUN APRN - [employer] INST[employer]ER 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 Member Role: Primary Care Physician Address: Address: [address] [place] [address] Physicians [place], [place] [address] Name: ARACELIS LIZ MD Position: ED Physician Member Role: ED Physician Address: Address: [address] [place] [address] [place] [address]- [place] Name: GEOFFREY Cook Position: AO RN Member Role: ED RN Name: DOROTEO ROBERSON DO Position: AH Resident Member Role: Resident Address: Address: [address] [facility] [place] [id number]- [place] Care Team Related Persons Name: CELESTINE VILA Address: Home [address] [place], [place] [id number] FOR RECORDS PERTAINING TO PATIENTS WHO ARE [...] BE BASED ON THE PRIMARY CLINICAL RECORDS. [facility] [employer] [facility]. provides no warranty or guarantee of the accuracy or completeness of information in this document.
--- NOTE | 2025-02-13 21:00 | ED.VIS.STROK ---
HPI History of Present Illness Chief Complaint: Stroke Alert Informant: patient and EMS Narrative Narrative: Patient is a 59-year-old male with history of tobacco use, JACLYN, hypertension, anemia and type 2 diabetes mellitus presenting as a stroke alert. Patient states around 5:30 PM he sat down to smoke a cigar. He tried again about 5 minutes later and fell because his left side gave out on him. He denies any in his head. He denies associated headache. [place] took some time to find help. He ultimately was brought in by EMS. EMS notes that he had slurred speech, left facial droop and was not moving the left side of his body. Stroke alert was called prearrival. Patient denies any numbness or tingling. He denies any pain, chest pain, shortness of breath difficulty breathing. He states he is not on any blood thinners. Denies any recent surgeries. Denies any abnormal bleeding. No other complaints or concerns at this time [facility] Medical History JACLYN (obstructive sleep apnea) Morbid obesity Tobacco use HLD (hyperlipidemia) HTN (hypertension) Diabetes mellitus, type 2 Home Medications ?Medication ?Instructions ?Recorded ?Last Taken ?Type A 150 mcg-fenugreek 70 cap PO 02/13/25 Unknown History hr-gpul-lsaukxo-b.[id number]-qrhfctxv-mqoxdx capsule (Blood Sugar Support) blood pressure support PO DAILY 02/13/25 Unknown History Allergy/AdvReac Type Severity Reaction Status Date / Time No Known Allergies Allergy Verified 02/13/25 19:46 Family History Mother Cancer Possibly metastatic GB cancer. Father , at 53 secondary to massive AK. CAD (coronary artery disease) Heart disease Hypertension Myocardial infarction Surgical History History of tonsillectomy and adenoidectomy History of surgery on lower extremity Social History household members: spouse Smoking Status: Current every day smoker tobacco type: cigars per week: 35 alcohol intake: never substance use type: does not use ROS ROS ED Constitutional Constitutional ED: Denies chills or fever(s) Eyes Eyes: Denies blurry vision or change in vision Cardiovascular Cardiovascular: Denies chest pain Respiratory/Chest Respiratory/Chest: Denies cough or dyspnea Gastrointestinal Gastrointestinal: Denies nausea or vomiting Integumentary Reports Abrasions Neurologic Neurologic: Reports weakness and other Details: slurred speech ; Denies headache(s) or paresthesias Hematologic/Lymphatic Hematologic/Lymphatic: Denies easy bleeding or easy bruising EXAM Physical Exam Const Vital Signs: 02/13/25 18:51 02/13/25 19:08 02/13/25 19:18 Temperature 98.1 F 98.1 F Temperature Source Axillary Oral Pulse Rate 90 91 Respiratory Rate 20 H 18 Blood Pressure 145/89 H 146/83 H Blood Pressure Mean 107 104 Blood Pressure Source Blood Pressure Position Blood Pressure Location Pulse Ox 100 100 Oxygen Delivery Method Room Air Room Air 02/13/25 19:18 02/13/25 19:18 02/13/25 19:29 Temperature 98.1 F Temperature Source Oral Pulse Rate 89 Respiratory Rate 20 H Blood Pressure 146/83 H 146/83 H Blood Pressure Mean 104 Blood Pressure Source Monitor Blood Pressure Position Supine Blood Pressure Location Left Arm Pulse Ox 100 98 Oxygen Delivery Method Room Air Room Air 02/13/25 19:33 Temperature Temperature Source Pulse Rate 93 Respiratory Rate 20 H Blood Pressure 145/89 H Blood Pressure Mean 107 Blood Pressure Source Monitor Blood Pressure Position Semi-Fowlers Blood Pressure Location Left Arm Pulse Ox 98 Oxygen Delivery Method Room Air Positive well nourished, well developed and obese General Appearance ED: well developed and NAD Nutritional Appearance: obese HEENT Reports TM's clear and moist mucous membranes atraumatic Tympanic Membrane ED: Yes TM's clear Eyes PERRL and EOMs intact bilaterally Neck supple Chest Wall inspection of chest normal and palpation of chest normal Resp normal respiratory effort and clear to auscultation bilaterally Cardio no murmurs GI normal to inspection, nondistended, normoactive bowel sounds and soft to palpation Extremity General Extremety ED: Negative for deformity, edema or tenderness General Extremity: Negative for deformity or edema Neuro oriented x3 Neuro Narrative: Left-sided facial droop with sparing of the forehead. Slurred speech. Drift of the left and upper lower extremity. Neglect with sensation to the left side when I am also touching the right side. Otherwise can tell when the left side is being touched. [place] Coma Scale: document GCS findings Spontaneous Obeys Commands Oriented 15 Sensorium / Orientation: alert Psych mental status grossly normal Skin Skin Narrative: Superficial abrasions to the bilateral anterior knees, right worse than left consistent with fall. MDM MDM MDM Narrative Medical decision making narrative: Patient evaluated for sudden onset of left-sided weakness. Presents as a stroke alert. Differential includes intracranial hemorrhage, large vessel occlusion, intracranial hemorrhage. He denies any other physical complaints at this time and was otherwise in his normal state of health right before this happened. Last known well was 5:30 PM. He is within the TNK window. CT of the brain does not show any acute process. CTA is obtained and pending. Protocol labs obtained per stroke order set. On initial evaluation at the EMS door in the cot patient has an NIH of 3 however when he is in the room his NIH is 6. As he does have debilitating symptoms and was in the TNK window ultimately decision made to administer tPA and K. This is discussed with teleneurology at [facility], Dr. Kurtz. I did also speak with Dr. Kurtz as patient's CTA does show occlusion of a more distal branch in the MCA per his interpretation however this would not be a candidate for thrombectomy and he does not require transfer for this. Spoke with radiology about initial CT of the brain results. Discussed with hospitalist for admission. Discussed at length with patient and risk and benefits of TNK and ultimately they decided to proceed with TNK as at this time the benefits of limiting any major debility with stroke outweigh the risk specifically major hemorrhage. Patient's high-sensitivity troponin is elevated at 80. EKG does not show acute ischemic changes. He denies any chest pain or back pain. This will continue to monitor on the medical floor. Lab Data Attestation: I reviewed the patient's lab results. Labs: Laboratory Results - last 24 hr 02/13/25 19:09 WBC 9.3 RBC 5.06 Hgb 15.4 Hct 43.7 MCV 86.4 MCH 30.4 MCHC 35.2 RDW Std Deviation 42.2 RDW Coeff of Chepe 13.4 Plt Count 186 MPV 10.3 Immature Gran % (Auto) 1.100 H Neut % (Auto) 72.7 H Lymph % (Auto) 15.7 L [place] % (Auto) 8.5 Eos % (Auto) 1.4 Baso % (Auto) 0.6 Absolute Neuts (auto) 6.7 Absolute Lymphs (auto) 1.46 Nucleated RBC % 0 PT 13.4 INR 1.0 APTT 25.0 Sodium 133 Potassium 3.8 Chloride 95 L Carbon Dioxide 23.7 Anion Gap 14 BUN 14 Creatinine 0.81 Estim Creat Clear Calc 144.07 Est GFR (MDRD) Non-Af 100 BUN/Creatinine Ratio 16.8 Glucose 385 H Calcium 8.9 Magnesium 1.8 Troponin T High Sens 80 H* Radiography Diagnostic Testing: Clinical Impression(s) from Imaging Studies Brain CT 02/13/25 18:51 IMPRESSION: No evidence of acute territorial major vessel infarct, mass effect or acute intracranial hemorrhage. - Mild left sphenoid sinusitis. - Other findings and recommendations discussed above. Reading Location: [facility] Head/Neck CTA 02/13/25 18:51 IMPRESSION: No evidence of an acute intracranial or cervical large vessel arterial occlusion. - There is atherosclerosis as discussed above. - Other incidental findings discussed above in detail. Reading Location: [facility] Rhythm Strip Rhythm Strip: Sinus Rhythm Rate: 92 Ectopy: None and PAC(s) EKG Initial EKG: Attestation: I personally reviewed and interpreted this EKG as follows: Interpretation: Sinus Rhythm Comments: Normal sinus rhythm at a rate of 90 bpm with PACs Normal axis Normal intervals Normal ST segments Management Discussion w/another healthcare provider: Hospitalist, [employer] Consultant and Radiologist Discharge Plan Dx/Rx/DC Orders Clinical Impression: Acute CVA (cerebrovascular accident), Facial droop due to stroke, Acute left-sided muscle weakness, Bill-neglect of left side, Slurring of speech, Elevated troponin Disposition Disposition: Acute Care Hospital [facility] Discharge Date/Time: 02/13/25 20:44 NIHSS NIHSS 1a. Level of Consciousness: 0 - Alert; keenly responsive 1b. LOC Questions: 0 - Answers BOTH questions correctly 1c. LOC Commands: 0 - Performs BOTH tasks correctly 2. Best Gaze: 0 - Normal 3. Visual: 0 - No visual loss 4. Facial Palsy: 2 - Partial paralysis (total or near-total paralysis of lower face) 5a. Left Arm: 1 - Drift; arm drifts downward but doesn?t hit the bed 5b. Right Arm: 0 - No drift; arm holds 90 (or 45) degrees for full 10 seconds 6a. Left Le - Drift; leg falls by the end of 5-seconds, but does not hit bed 6b. Right Le - No drift; leg holds 30-degree position for full 5 seconds 7. Limb Ataxia: 0 - Absent 8. Sensory: 0 - Normal; no sensory loss 9. Best Language: 0 - No aphasia; normal 10. Dysarthria: 1 = Ydkb-fr-otueyxww dysarthria; 11. Extinction and Inattention: 1 - Visual, tactile, auditory, spatial, or personal inattention; Total: 6 Stroke Questions Stroke Team Activated: Yes Reviewed Inclusion/Exclusion criteria: Yes IV Thrombolytic Administered: Yes No contraindications from thrombolytic administration: Yes Informed the patient and/or family of all associated risks, benefits, & alternatives to IV Thrombolytic Therapy. Patient and/or family voluntarily consent to the administration of IV Thrombolytic Therapy: Yes
--- NOTE | 2025-02-13 21:10 | ECHOCS_ITS ---
Reason For Study Reason For Study: TIA/CVA Procedure This was a 2D Doppler, Color Flow transthoracic echocardiogram. The study was technically difficult. Contrast injection was performed. Exam performed portable in ICU/CCU. Left Ventricle Normal LV size. Mild concentric left ventricular hypertrophy. Left ventricular systolic function is normal. The left ventricular ejection fraction is 55 %. No regional wall motion abnormalities noted. Right Ventricle Normal RV size. Normal systolic function. Atria Normal left atrium. The right atrium is mildly enlarged. Aortic Valve Trisinus/trileaflet aortic valve. Mild focal aortic valve calcification. Pulmonic Valve The pulmonic valve is not well visualized. Great Vessels Moderately dilated aortic root. The pulmonary artery is normal size. Inferior vena cava collapse with respiration. Pericardium/Pleural No pericardial effusion. Medication Diluted definity 4.5ml given slow IV push to enhance endocardial definition. MMode/2D Measurements & Calculations LVIDd: 5.7 cm IVSd: 1.2 cm LVOT diam: 2.0 cm LVIDs: 4.2 cm LVPWd: 1.5 cm LVOT area: 3.2 cm2 FS: 25.2 % Ao root diam: 4.4 cm LA dimension(2D): 4.0 cm Time Measurements MV dec time: 0.19 sec Doppler Measurements & Calculations MV E max felipe: 105.7 cm/sec Lat Peak E' Felipe: 9.6 cm/sec Med Peak E' Felipe: 9.3 cm/sec MV A max felipe: 99.9 cm/sec E/E' lat: 11.0 E/E' med: 11.4 MV E/A: 1.1 MV dec slope: 563.6 cm/sec2 Ao V2 max: 130.9 cm/sec LV V1 max: 97.8 cm/sec Ao max P.0 mmHg LV V1 max P.8 mmHg Ao V2 mean: 88.9 cm/sec LV V1 mean P.2 mmHg Ao mean P.9 mmHg LV V1 mean: 68.5 cm/sec Ao V2 VTI: 24.9 cm LV V1 VTI: 23.7 cm AV (velocity ratio): 0.95 AMBROSIO(I,D): 3.1 cm2 AMBROSIO(V,D): 2.4 cm2 SV(LVOT): 76.4 ml PA V2 max: 100.9 cm/sec PA V2 mean: 73.0 cm/sec ECHO/Echo Complete W/ Contrast Interpretation Summary Normal LV size. Left ventricular systolic function is normal. Moderately dilated aortic root. Mild concentric left ventricular hypertrophy. The left ventricular ejection fraction is 55 %. Mild focal aortic valve calcification. Ordering Physician: Cristiana Gonzalez Referring Physician: GOLDIE YUN Performed By: Shaniqua Vick RCS
--- NOTE | 2025-02-13 22:05 | PCM.HOSP.N ---
Hospitalist Note Patient with more right directed gaze/partial hemianopia with otherwise similar examination, although patient of note was looking primarily toward the right in the ED upon evaluation. Will obtain CT head to be cautious however.
--- NOTE | 2025-02-13 22:11 | CT_ITS ---
PROCEDURE: BRAIN/HEAD WITHOUT CONTRAST 02/14/2025 REASON FOR EXAM: NIHSS CHANGE CONCERN TECHNIQUE: Procedure Code: CTBR Modality: CT Procedure: BRAIN/HEAD WITHOUT CONTRAST Coronal and Sagittal reconstruction series were provided. One or more dose reduction techniques were used (e.g., Automated exposure control, adjustment of the mA and/or kV according to patient size, use of iterative reconstruction technique. RADIATION DOSE SUMMARY: CTDlvol: 44.99 mGy DLP: 829.85 mGycm COMPARISON: 13-Feb-2025 FINDINGS: The visualized brain parenchyma shows normal appearance. No focal parenchymal abnormalities are demonstrated. Loco-white matter differentiation is maintained. Bilateral basal ganglia calcifications (physiological). Normal CT appearance of the posterior fossa structures. No intracerebral or extra-axial hemorrhage. No midline shifts or deformity. Normal size and configuration of the cerebral ventricles. No definite calvarial fractures. The osseous structures in the skull base are unremarkable. Paranasal sinuses show sphenoid sinusitis. Vascular atheromatous calcifications CT/Brain/Head without Contrast IMPRESSION: No intracerebral or extra-axial hemorrhage. No acute cerebrovascular insult. If clinical symptoms persist, further evaluati on with MRI may be considered as clinically warranted. Reading [facility]
[2025-02-13 22:44] LABS: Troponin T High Sens 2 HR 90 ng/L (<=22)
[2025-02-13 23:22] LABS: Troponin T High Sens 4 HR 121 ng/L (<=22)
[2025-02-14] VITALS (50 sets, daily range): BP systolic 100–170; BP diastolic 53–120; PULSE 85–109; RESP 13–27; TEMP 36.1–37.2; O2SAT 94–100; BMI 44.6; BMI 44.7
[2025-02-14] MEDS: [UNRECOGNIZED DRUG - REMARK] 50 MG CONT INF (01:08)
--- NOTE | 2025-02-14 01:29 | CON.PCM.CC_ITS ---
HPI Consult Data Date of Consult: 02/14/25 HPI Narrative Reason for Consultation: Stroke post TNK, HTN emergency HPI Narrative: JOYCE VILA, is a 59 y/o M w/ PMHx: JACLYN non-complaint with PAP therapy, Morbid obesity, HTN, HLD, IDDM, Tobacco use (cigars) who presents to the [facility] ED on 02/13/25 with history of onset at 1730 left-sided weakness and slurred speech resulting in fall with no head trauma or loss of consciousness prompting EMS call and transition to the hospital for evaluation. Initial NIH stroke assessment in the ED with left arm and left leg drift in addition to mild to moderate aphasia with a total score of 3. Patient had CT head that was negative for blled therefore received TNK at around 19:30 on 02/13. Currently patient in ICU and symptoms have improved since he has arrived to ER. [facility] Medical History JACLYN (obstructive sleep apnea) Morbid obesity Tobacco use HLD (hyperlipidemia) HTN (hypertension) Diabetes mellitus, type 2 Home Medications ?Medication ?Instructions ?Recorded ?Last Taken ?Type A 150 mcg-fenugreek 70 cap PO 02/13/25 Unknown Hist ory [id number]-nrxyksh-b.llhdd-quwzwmzo-quxmqa capsule (Blood Sugar Support) blood pressure support PO DAILY 02/13/25 Unknown Hi story Allergy/AdvReac Type Severity Reaction Status Date / Time No Known Allergies Allergy Verified 02/13/25 19:46 Family History Mother Cancer Possibly metastatic GB cancer. Father , at 53 [address] CAD (coronary artery disease) Heart disease Hypertension Myocardial infarction Surgical History History of tonsillectomy and adenoidectomy History of surgery on lower extremity Social History household members: spouse Smoking Status: Current every day smoker tobacco type: cigars per week: 35 alcohol intake: never substance use type: does not use Objective Data Objective Data Vital Signs: Vital Signs Last response 3 Temperature 36.2 C L 02/14/25 01:08 Temperature Source Temporal 02/14/25 01:08 Pulse Rate 88 02/14/25 01:08 Pulse Strength Normal (2+) 02/13/25 22:00 Respiratory Rate 21 H 02/14/25 01:08 Respiratory Effort Normal, Non-Labored 02/14/25 00:00 Respiratory Depth Normal 02/14/25 00:00 Respiratory Pattern Tachypnea 02/14/25 00:00 Blood Pressure 170/120 H 02/14/25 01:08 Blood Pressure Mean 136 02/14/25 01:08 Blood Pressure Source Monitor 02/14/25 01:00 Blood Pressure Position Semi-Fowlers 02/14/25 01:00 Blood Pressure Location Left Arm 02/14/25 01:00 Pulse Ox 99 02/14/25 01:08 Oxygen Delivery Method Room Air 02/14/25 01:08 I&O: I&O Last 24 Hours 3 02/13/25 02/13/25 02/14/25 11:59 23:59 11:59 Output Total 900 / 1700 800 / 800 Balance -900 / -1700 -800 / -800 I&O: Total Stay 3 02/13/25 18:48 thru 02/14/25 00:00 Output Total 1700 Balance -1700 Current Meds Ordered / Administered: Current meds ordered / Administered 3 Generic Name Dose Route Start Last Admin Trade Name Freq PRN Reason Stop Dose Admin Acetaminophen 650 mg 02/13/25 21:10 Acetaminophen 325 Mg Tablet PO Q4H PRN PRN Fever, pain 1-03/04 Al Hydroxide/Mg Hydroxide 30 ml 02/13/25 21:10 Mag Hydrox/Al Hydrox/Simeth 30 Ml Udc PO Q6H PRN PRN Gastric Burning Albuterol Sulfate 2.5 mg 02/13/25 21:10 Albuterol 2.5 Mg/3 Ml Vial.Neb. INHALATION Q2H PRN PRN Dyspnea, wheezing Glucagon 1 mg 02/13/25 21:10 Glucagon 1 Mg/Ml Syringe IM X1 PRN HYPOGLYCEMIA Protocol Guaifenesin 10 ml 02/13/25 21:10 Guaifenesin 10 Ml Udc (200mg/10ml) PO Q4H PRN PRN COUGH Sodium Chloride 1,000 mls @ 100 mls/hr 02/13/25 21:10 02/13/25 21:10 IV 02/14/25 07:09 Not Given .Q10H TESSA Dextrose 250 mls @ 0 mls/hr 02/13/25 21:10 Dextrose 10%-Water IV .Q0M PRN HYPOGLYCEMIA Protocol As Directed Nicardipine HCl 25 mg/ Sodium 250 mls @ 50 mls/hr 02/13/25 21:20 02/14/25 01:08 Chloride CONT INF 5 mg/hr .Q5H TESSA 50 mls/hr Protocol Administration 5 MG/HR Insulin Human Lispro 0 unit 02/13/25 22:00 02/14/25 00:18 Insulin Lispro 100 Unit/Ml Insuln.Pen SC 1 u ACHS TESSA Administration Protocol Melatonin 3 mg 02/13/25 21:10 Melatonin 3 Mg Tablet PO QHS PRN PRN INSOMNIA Ondansetron HCl 4 mg 02/13/25 21:10 Ondansetron 4 Mg/2 Ml Vial IV Q8H PRN PRN NAUSEA/VOMITING Senna/Docusate Sodium 2 tablet 02/13/25 21:10 Senna/Docusate Sodium 1 Tablet PO BID PRN PRN Constipation Sodium Chloride 10 - 40 ml 02/13/25 21:11 0.9% Saline Lock 10 Ml Syringe IV UD PRN SALINE FLUSH Physical Exam Narrative PHYSICAL EXAMINATION General: no acute distress; alert and oriented x 4 HEENT: PERRL; EOMI; Anicteric Sclera; No thyromegaly, JVD, Lymphadenopathy Cardiovascular: Regular Rate and Rhythm; No murmurs, rubs, gallops; no displaced PMI Respiratory: no crackles, wheezes, or rhonchi Abdominal: Non-tender; Non-distended; Active BS x 4; No Hepatosplenomegaly Extremities: Warm, well perfused; No clubbing, cyanosis, edema; capillary refill < 2sec Neurological: NIH of 9 Lab / Micro Data 02/13/25 19:09 02/13/25 19:09 Labs: Laboratory Results - last 24 hr 02/13/25 19:09: WBC 9.3, RBC 5.06, Hgb 15.4, Hct 43.7, MCV 86.4, MCH 30.4, MCHC 35.2, RDW Std Deviation 42.2, RDW Coeff of Chepe 13.4, Plt Count 186, MPV 10.3, I mmature Gran % (Auto) 1.100 H, Neut % (Auto) 72.7 H, Lymph % (Auto) 15.7 L, [place] % (Auto) 8.5, Eos % (Auto) 1.4, Baso % (Auto) 0.6, Absolute Neuts (auto) 6.7, Absolute Lymphs (auto) 1.46, Nucleated RBC % 0, PT 13.4, INR 1.0, APTT 25.0, Sodium 133, Potassium 3.8, Chloride 95 L, Carbon Dioxide 23.7, Anion Gap 14, BUN 14, Creatinine 0.81, Estim Creat Clear Calc 144.07, Est GFR (MDRD) Non-Af 100, BUN/Creatinine Ratio 16.8, Glucose 385 H, Calcium 8.9, Magnesium 1.8, Troponin T High Sens 80 H* 02/13/25 22:01: Troponin T Hi Sens 2 Hr 90 H* 02/13/25 22:50: Troponin T Hi Sens 4Hr 121 H* Rhythm Strip Rhythm Strip: Sinus Rhythm Rate: 92 Ectopy: None and PAC(s) Imaging Radiology Impression Brain CT 02/13/25 18:51 IMPRESSION: No evidence of acute territorial major vessel infarct, mass effect or acute intracranial hemorrhage. - Mild left sphenoid sinusitis. - Other findings and recommendations discussed above. Reading Location: [facility] Chest X-Ray 02/13/25 18:51 IMPRESSION: No radiographic evidence for acute infiltrate. - Other findings discussed above. Reading Location: [facility] Head/Neck CTA 02/13/25 18:51 IMPRESSION: No evidence of an acute intracranial or cervical large vessel arterial occlusion. - There is atherosclerosis as discussed above. - Other incidental findings discussed above in detail. Reading Location: [facility] Brain CT 02/13/25 22:11 IMPRESSION: No intracerebral or extra-axial hemorrhage. No acute cerebrovascular insult. If clinical symptoms persist, further evaluation with MRI may be considered as clinically warranted. Reading Location: [place] [id number] Assessment and Plan . Assessment and plan: #Acute CVA #HTN Emergency #HLD #DM #Morbid obesity #JACLYN #Current smoker Plan -Continue to monitor patient's hemodynamics, neurological status and respiratory status in ICU -Stroke protocol -TNKase as per protocol -Neurochecks every hour -CT head if patient's neurological status worsening -Blood pressure control with goal SBP less than 180 -Start on Cardene drip to keep blood pressure less than 180 -CTA head and neck -Consult neurology -Neurosurgery will be involved if patient has hemorrhage -Repeat CT head in 24 hours -Hemoglobin A1c and lipid panel -2DEcho - At 24 hours after IV TNK administration, start Aspirin EC 81mg orally daily if no contraindications otherwise. -DVT prophylaxis-SCDs for stroke prevention for now, chemoprophylaxis 24 hours post TNKase -Consult PT OT and speech per protocol -Consult case management for rehab needs -SSI -Keep NPO for now -BiPAP/CPAP for sleep apnea -Counselled on smoking cessation Critical Care Time: 62mins The entirety of this encounter was done via Telemedicine
[2025-02-14] MEDS: 0.9% Normal Saline (1000mL) 1,000 ML 100 ML IV (04:14)
[2025-02-14 04:39] LABS: Hematocrit 44.8 % (40-54); Hemoglobin 15.4 g/dL (13.0-16.5); Immature Granulocytes Count 0.150 X10^3/uL (0.0-0.0); Mean Corp Hgb Conc 34.4 g/dL (32-36); Mean Corpuscular Volume 88.0 fL (80-94); Mean Platelet Vol. 10.3 fl (6.2-12.0); NRBC Flagged by Analyzer 0 % (0-5); Platelet Count 160 K/mm3 (150-450); RBC Distribution Width CV 13.4 % (11.6-14.6); RBC Distribution Width SD 43.6 fl (35.1-43.9); Red Blood Count 5.09 M/mm3 (4.6-6.2); White Blood Count 12.6 K/mm3 (4.4-11.0)
[2025-02-14] MEDS: [UNRECOGNIZED DRUG - REMARK] 75 MG CONT INF (05:25)
[2025-02-14 05:28] LABS: AST(SGOT) 28 U/L (<=37); Alanine Aminotransfer ALT/SGPT 21 U/L (<=46); Albumin, Serum 3.8 g/dL (3.4-4.8); Alkaline Phosphatase 103 U/L (40-129); Anion Gap 13 (5-15); BUN 11 mg/dL (4-19); BUN/Creat Ratio 12.9 RATIO (10-20); Calcium,Total 9.2 mg/dL (7.6-11.0); Carbon Dioxide 22.0 mmol/L (21.0-32.0); Chloride 100 mmol/L (98-108); Cholesterol 228 mg/dL (<=200); Estimated Creatinine Clearance 144.38 ml/min (50-250); Globulin 2.8 g/dL (2.2-4.2); Glucose 395 mg/dL (70-99); Low Density Lipoprotein Calc. 93 mg/dL; Potassium 4.2 mmol/L (3.3-5.1); Triglycerides 526 mg/dL; Very Low Density Lipoprotein 105 mg/dL (5-40); cholesterol:hdl ratio screen 7.65
--- NOTE | 2025-02-14 06:00 | MRI_ITS ---
PROCEDURE: BRAIN WITHOUT CONTRAST 02/14/2025 REASON FOR EXAM: ACUTE CVA 24HRS AFTER TENECTEPLASE ADMINISTRATION TECHNIQUE: Procedure Code: MRIBR Modality: MR Procedure: BRAIN WITHOUT CONTRAST Multiplanar and multisequence images were obtained. COMPARISON: None available. FINDINGS: Focus of restricted diffusion centered in the right insula compatible with acute infarct. There is associated FLAIR hyperintensity compatible with cytotoxic edema. No acute hemorrhage. Chronic lacunar infarct in the right centrum semiovale. A few scattered nonspecific periventricular and subcortical white matter hyperintensities likely reflect chronic microvascular ischemic changes.. No extra-axial fluid collection. No significant mass effect or herniation of the brain. The ventricular system and sulci/fissures are within expected limits of size and configuration for the patient's stated age. The basal cisterns are patent. The intracranial large vessel arterial flow voids are maintained. The mastoid air cells clear. There is scattered paranasal mucosal thickening. The orbits are unremarkable. The calvarial bone marrow signal is within normal limits. MRI/Brain without Contrast IMPRESSION: Acute infarct in the right MCA territory centered in the right insula. No acut e hemorrhage. Reading Location: [id number]
--- NOTE | 2025-02-14 07:54 | PN.HOSP_ITS ---
Reason for Visit Chief Complaint: L sided weakness, facial droop, slurred speech. Subjective Subjective Improved left weakness. Objective Data Objective Data Vital Signs: Vital Signs Temp Pulse Resp BP Pulse Ox O2 Del Method 36.2 C L 106 H 14 130/84 H 98 Room Air 02/14/25 06:00 02/14/25 07:45 02/14/25 07:15 02/14/25 07:45 02/14/25 07:15 02/14/25 07:15 Oxygen Delivery Method Room Air Weight: 153.2 kg Body Mass Index (BMI) 44.7 Intake & Output: Intake and Output for Last 24 Hours 02/12/25 02/13/25 02/14/25 23:59 23:59 23:59 Intake Total 418.33 / 418.33 Output Total 900 / 1700 2950 / 2950 Balance -900 / -1700 -2531.67 / -2531.67 Lab / Micro Data 02/14/25 04:11 02/14/25 04:11 Labs: Laboratory Results - last 24 hr 02/13/25 19:09: WBC 9.3, RBC 5.06, Hgb 15.4, Hct 43.7, MCV 86.4, MCH 30.4, MCHC 35.2, RDW Std Deviation 42.2, RDW Coeff of Chepe 13.4, Plt Count 186, MPV 10.3, I mmature Gran % (Auto) 1.100 H, Neut % (Auto) 72.7 H, Lymph % (Auto) 15.7 L, [place] % (Auto) 8.5, Eos % (Auto) 1.4, Baso % (Auto) 0.6, Absolute Neuts (auto) 6.7, Absolute Lymphs (auto) 1.46, Nucleated RBC % 0, PT 13.4, INR 1.0, APTT 25.0, Sodium 133, Potassium 3.8, Chloride 95 L, Carbon Dioxide 23.7, Anion Gap 14, BUN 14, Creatinine 0.81, Estim Creat Clear Calc 144.07, Est GFR (MDRD) Non-Af 100, BUN/Creatinine Ratio 16.8, Glucose 385 H, Calcium 8.9, Magnesium 1.8, Troponin T High Sens 80 H* 02/13/25 22:01: Troponin T Hi Sens 2 Hr 90 H* 02/13/25 22:50: Troponin T Hi Sens 4Hr 121 H* 02/13/25 23:44: POC Glucose 159 H 02/14/25 04:11: WBC 12.6 H, RBC 5.09, Hgb 15.4, Hct 44.8, MCV 88.0, MCH 30.3, MCHC 34.4, RDW Std Deviation 43.6, RDW Coeff of Chepe 13.4, Plt Count 160, MPV 10.3, Immature Gran % (Auto) 1.200 H, Neut % (Auto) 82.5 H, Lymph % (Auto) 8.7 L , [place] % (Auto) 6.6, Eos % (Auto) 0.6, Baso % (Auto) 0.4, Absolute Neuts (auto) 10.4 H, Absolute Lymphs (auto) 1.10, Nucleated RBC % 0, Sodium 135, Potassium 4.2, Chloride 100, Carbon Dioxide 22.0, Anion Gap 13, BUN 11, Creatinine 0.83, Estim Creat Clear Calc 144.38, Est GFR (MDRD) Non-Af 100, BUN/Creatinine Ratio 12.9, Glucose 395 H, Hemoglobin A1c 11.9 H, Calcium 9.2, Total Bilirubin 0.51, AST 28, ALT 21, Alkaline Phosphatase 103, Total Protein 6.6, Albumin 3.8, Globulin 2.8, Albumin/Globulin Ratio 1.4, Triglycerides 526 H, Cholesterol 228 H , LDL Cholesterol, Calc 93, VLDL Cholesterol 105 H, HDL Cholesterol 30 L, Cholesterol/HDL Ratio 7.65, TSH 1.090 Radiography Diagnostic Testing: Radiology Impression Brain CT 02/13/25 18:51 IMPRESSION: No evidence of acute territorial major vessel infarct, mass effect or acute intracranial hemorrhage. - Mild left sphenoid sinusitis. - Other findings and recommendations discussed above. Reading Location: [facility] Chest X-Ray 02/13/25 18:51 IMPRESSION: No radiographic evidence for acute infiltrate. - Other findings discussed above. Reading Location: [facility] Head/Neck CTA 02/13/25 18:51 IMPRESSION: No evidence of an acute intracranial or cervical large vessel arterial occlusion. - There is atherosclerosis as discussed above. - Other incidental findings discussed above in detail. Reading Location: [facility] Brain CT 02/13/25 22:11 IMPRESSION: No intracerebral or extra-axial hemorrhage. No acute cerebrovascular insult. If clinical symptoms persist, further evaluation with MRI may be considered as clinically warranted. Reading Location: [place] [id number] Rhythm Strip Rhythm Strip: Sinus Rhythm Rate: 92 Ectopy: None and PAC(s) Physical Exam Const alert and no apparent distress HEENT head/scalp atraumatic and moist oral mucous membranes HEENT Narrative: left facial droop Resp normal respiratory effort and no retractions Extremity normal to inspection and no clubbing, cyanosis or edema Neuro moves all extremities, no focal motor deficits and no sensory deficits noted Neuro Narrative: muscle strength 4/5 LUE, 5/5 in RUE, RLE, LLE. Sensorium / Orientation: awake and alert Speech: speech normal Psych affect normal Assessment & Plan Assessment/Plan (1) Acute CVA (cerebrovascular accident): PLAN: Plan Acute CVA: * Patient w acute left-sided facial droop, left-sided hemiplegia * s/p tenectaplase on 02/13 * Check MRI brain. * PT/OT/Speech/Nutrition evaluation per protocol. * Permissive HTN * neurology consult * echo shows an EF 55% Chronic conditions: * Hypertension: Will maintain permissive HTN per stroke protocol status post neck to place administration with PRN agents per stroke order set. * Hyperlipidemia: Will continue home statin regimen, FLP in AM. * Diabetes mellitus type I with hyperglycemia I: Hold oral home regimen, continue home insulin regimen, ADA diet if cleared for oral intake following stroke protocol initiated bedside swallow evaluation, accu checks w/ ISS, HgbA1c requested, nutrition consulted per protocol. * Tobacco Abuse: Encouraged cessation, inpatient consultation per RT, NR if desired. * Morbid Obesity: Weight loss and lifestyle changes encouraged, nutrition consulted. * JACLYN: Patient does have PAP therapy at home but notes he does not use it, discussed at length and amenable to using CPAP currently. Encouraged continued use at discharge. DVT prophylaxis: SCDs given TNK usage. DW patient's at bedside. Charges/Coding Visit Charges Inpatient E&M: 08593 Subs Hosp L3 NIHSS NIHSS Nursing Documentation NIHSS Nursing Documentation: Thrombolytic: Vital Signs & NIHSS Start: 02/13/25 19:18 Text: Assess and document vital signs and NIHSS Status: Active within 15 minutes of tenecteplase bolus administration Freq: [id number] Protocol: Activity Type Activity Date Activity User E-sign Co-sign Detail Recorded Client Recorded Date Recorded By Document 02/14/25 06:55 [id number] 02/14/25 07:05 TB 02/14/25 06:55 Vital Signs [Pulse] -Pulse Rate (60-100) 101 H -Pulse Location Monitor [Respirations] -Respiratory Rate (12-18) 24 H -Respiratory rate source Monitor -Pulse Oximetry 98 -Oxygen Delivery Method Room Air [Blood Pressure] -Blood Pressure (90/60-120/80) 124/83 H -Blood Pressure Mean (mm Hg) 96 -Source Monitor -Position Semi-Fowlers -Blood Pressure Location Left Arm -Is the SBP > or = 180 No -Is the DBP > or = 105 No NIH Stroke Scale [NIHSS] A score of 0 is normal or asymptomatic . Total possible score is 42. Inpatient: RN or Physician to activate a stroke alert for onset of new stroke symptoms or with NIHSS increase >/= 3 points. Following change in neurological status, NIHSS will be performed per physician order or more frequently PRN. -1a. Level of Consciousness 0 - Alert; keenly responsive -1b. LOC Questions 0 - Answers BOTH questions correctly -1c. LOC Commands 0 - Performs BOTH tasks correctly -2. Best Gaze 0 - Normal -3. Visual 0 - No visual loss -4. Facial Palsy 1 - Minor paralysis ( flattened nasolabial fold , asymmetry on smiling) -5a. Left Arm 0 - No drift; arm holds 90 ( or 45) degrees for full 10 seconds -5b. Right Arm 0 - No drift; arm holds 90 ( or 45) degrees for full 10 seconds -6a. Left Leg 0 - No drift; leg holds 30- degree position for full 5 seconds -6b. Right Leg 0 - No drift; leg holds 30- degree position for full 5 seconds -7. Limb Ataxia 0 - Absent -8. Sensory 1 - Mild-to- moderate sensory loss; -9. Best Language 0 - No aphasia; normal -10. Dysarthria 1 = Mild-to- moderate dysarthria; -11. Extinction and Inattention 0 - No abnormality -Total 3 Query Text:A score of 0 is normal or asymptomatic. Total possible score is 42 . ED: Notify Physician for NIHSS increase by > / = 3 points. Inpatient: RN or Physician to activate a stroke alert for NIHSS increase of > / = 3 points.
--- NOTE | 2025-02-14 11:45 | CASEMGMT ---
GEOFFREY RANDHAWA Assessment Face to Face with patient for initial transition planning/care coordination assessment. RN EDIS introduced self and role at [facility], pt voices understanding. Pt is A&Ox4 and is resting comfortably in bed and is calm. Pt's at bedside. Care providers, pharmacy, and demographics verified. Admitting dx: CVA s/p TNK (1928 on 02/13) LACE Strata: 2 PCP: Yossi Serrato Specialists: Denies Preferred Pharmacy: P @ the time of DC Insurance: SP. SW plans to follow up with the pt Prescription Benefit: None. Educated about Good Rx. CM to follow for rx costs @ the time of DC LNOK: Jesenia (W) Living Arrangements: Pt lives with his in a mobile home with 4 steps to enter ADLs/IADLs: Pt states that he is indep at baseline. PT is ordered and plans to evaluate tomorrow d/t TNK. Current 6-Click score is 18. Transportation: Self, DME: CPAP @ HS with no additional oxygen. Functioning BGM with sufficient supplies for testing. Access to a FWW. Lift chair. HHC/SNF: Denies hx or needs Pt?s goal: Home Plan: Home, follow for rx costs. Follow PT eval tomorrow. At this time, the pt anticipates that he will be able to return home once medically ready and denies the need for HHC or OP Tx. Pt and pt's decline further questions or concerns at this time. CM to follow. Irma Zhang RN, CM
--- NOTE | 2025-02-14 14:02 | CASEMGMT ---
Social Work SW met w/pt present, pt wants to be present. Pt completed PHQ-9, which does indicate signs of depression. Pt not able to pinpoint how long he has been feeling this way, but states when he goes to work, all he wants to do is return home. He states he feels he is letting his down, cannot help her as his knees are bad. Pt needs knee replacement most likely but does not have insurance so cannot afford it. We talked about the possibility of getting insurance for a year so he can get all of his medical issues taken care of. Pt does think a lot of his feeling down is due to the medical issues and not being able to get them addressed due to not having insurance. We also spoke about counseling. Pt has never been diagnosed w/depression, has never been in counseling. Pt states he may be open to counseling but again is concerned about being able to afford it. SW did provide to pt and a list of counseling resources, pointed out [facility] and explained they do have a sliding scale. SW remains available for support to pt and as needed. SHARON Serrato
--- NOTE | 2025-02-14 14:08 | CASEMGMT ---
Social Work SW met w/pt regarding self pay status, provided resources including [employer], [facility], [facility], prescription assistance programs, and [facility] [place] card. Pt and are willing to meet w/Shelley, and Shelley will be coming in this afternoon. Pt works for [employer] so insurance is not offered. states they could get insurance through her work but it's not affordable. They did have insurance through the exchange program at one point however the deductible was $15,000. Pt likely needs knee surgery, needs a new C-Pap, but has not been able to follow up on these things due to lack of insurance. SW suggested they get insurance for a year so pt can get everything he needs medically. SW remains available as needed for resources. SHARON Serrato
--- NOTE | 2025-02-14 21:41 | STROKE.CONS ---
Assessment and Plan: Stroke Assessment/Plan JOYCE VILA is a 59 M with a history of HTN, JACLYN, did not take meds due to cost who presents for evaluation of Left weakness. Seen on Tele. Received TNK. Neurological examination shows improvement in NIH, 3. Neuroimaging shows MRI p. IMPRESSION: The patient's constellation of signs and symptoms and neuroimaging findings are most consistent with acute ischemic stroke, . RECOMMENDATIONS: - Admit to Neurological intensive care unit - Post IVtNK order sets - Post- procedure CT brain - Order the following test for stroke evaluation: MRI brain ( stroke protocol), carotid ultrasounds, Transthoracic echocardiogram, holter monitor, fasting lipid panel, - MRI Brain - R MCA infarct. less than 1/3 territory, mainly in Insula. CTA R M2. Etiology - Cryptogenic. Although patient does have risk factors and uncontrolled DM2. HgbA1c - 11.9 - Endocrine consult. - Occupational/Physical therapy consult - DVT prophylaxis with SCDs and heparin SQ - NPO until swallow evaluation. IVF - Permissive hypertension to goal SBP < mm Hg - Anti-platelet medication : Aspirin 325 mg daily - Vascular risk factor modification: - Hyperlipidemia: LDL Goal < 70 mg/dL. Elevated TGL, referral to lipid clinic. Or set up care with a PCP. - Smoking Cessation - Diabetes management - MCT on DC - JACLYN - referral to sleep clinic to get back on CPAP. HPI Consult Data Date of Consult: 02/14/25 HPI Narrative HPI Narrative: JOYCE VILA, is a 59 M who presents [facility] Medical History JACLYN (obstructive sleep apnea) Morbid obesity Tobacco use HLD (hyperlipidemia) HTN (hypertension) Diabetes mellitus, type 2 Home Medications ?Medication ?Instructions ?Recorded ?Last Taken ?Type A 150 mcg-fenugreek 70 cap PO 02/13/25 Unknown History [id number]-b.aesex-xwccxsir-lyumcz capsule (Blood Sugar Support) blood pressure support PO DAILY 02/13/25 Unknown History Allergy/AdvReac Type Severity Reaction Status Date / Time No Known Allergies Allergy Verified 02/13/25 19:46 Family History Mother Cancer Possibly metastatic GB cancer. Father , at 53 secondary to massive AK. CAD (coronary artery disease) Heart disease Hypertension Myocardial infarction Surgical History History of tonsillectomy and adenoidectomy History of surgery on lower extremity Social History household members: spouse Smoking Status: Current every day smoker tobacco type: cigars per week: 35 alcohol intake: never substance use type: does not use Vital Signs Vital Signs Vital Signs: 02/13/25 22:00 02/13/25 22:00 02/13/25 22:30 Temperature 96.7 F L 97.1 F L Temperature Source Temporal Temporal Pulse Rate 94 90 Pulse Strength Normal (2+) Respiratory Rate 18 28 H Respiratory Effort Respiratory Depth Respiratory Pattern Blood Pressure 148/93 H 119/73 Blood Pressure Mean 111 88 Blood Pressure Source Monitor Monitor Blood Pressure Position Semi-Fowlers Semi-Fowlers Blood Pressure Location Left Arm Left Arm Pulse Ox 98 99 Oxygen Delivery Method Room Air Room Air 02/13/25 23:30 02/14/25 00:00 02/14/25 00:00 Temperature 97.1 F L 97.5 F L Temperature Source Temporal Temporal Pulse Rate 91 92 89 Pulse Strength Respiratory Rate 19 H 25 H Respiratory Effort Respiratory Depth Respiratory Pattern Blood Pressure 161/88 H 148/114 H Blood Pressure Mean 112 125 Blood Pressure Source Monitor Monitor Blood Pressure Position Semi-Fowlers Semi-Fowlers Blood Pressure Location Left Arm Left Arm Pulse Ox 96 98 Oxygen Delivery Method Room Air Room Air 02/14/25 00:00 02/14/25 00:30 02/14/25 01:00 Temperature 97.4 F L 97.2 F L Temperature Source Temporal Temporal Pulse Rate 92 91 Pulse Strength Respiratory Rate 25 H 19 H Respiratory Effort Normal Non-Labored Respiratory Depth Normal Respiratory Pattern Tachypnea Blood Pressure 170/83 H 170/120 H Blood Pressure Mean 112 136 Blood Pressure Source Monitor Monitor Blood Pressure Position Semi-Fowlers Semi-Fowlers Blood Pressure Location Left Arm Left Arm Pulse Ox 96 98 Oxygen Delivery Method Room Air Room Air Room Air 02/14/25 01:08 02/14/25 01:30 02/14/25 01:33 Temperature 97.2 F L 97.0 F L Temperature Source Temporal Temporal Pulse Rate 88 95 94 Pulse Strength Respiratory Rate 21 H 24 H 23 H Respiratory Effort Respiratory Depth Respiratory Pattern Blood Pressure 170/120 H 157/97 H 157/97 H Blood Pressure Mean 136 117 117 Blood Pressure Source Monitor Blood Pressure Position Semi-Fowlers Blood Pressure Location Left Arm Pulse Ox 99 98 98 Oxygen Delivery Method Room Air Room Air Room Air 02/14/25 01:45 02/14/25 02:00 02/14/25 02:00 Temperature Temperature Source Pulse Rate 96 97 94 Pulse Strength Respiratory Rate 25 H 20 H 22 H Respiratory Effort Respiratory Depth Respiratory Pattern Blood Pressure 154/85 H 146/79 H 146/79 H Blood Pressure Mean 108 101 101 Blood Pressure Source Monitor Blood Pressure Position Semi-Fowlers Blood Pressure Location Left Arm Pulse Ox 96 97 99 Oxygen Delivery Method Room Air Room Air Room Air 02/14/25 02:15 02/14/25 02:23 02/14/25 03:00 Temperature Temperature Source Pulse Rate 96 99 98 Pulse Strength Respiratory Rate 24 H 23 H 23 H Respiratory Effort Respiratory Depth Respiratory Pattern Blood Pressure 147/104 H 151/81 H 153/86 H Blood Pressure Mean 118 104 108 Blood Pressure Source Monitor Monitor Blood Pressure Position Semi-Fowlers Semi-Fowlers Blood Pressure Location Left Arm Left Arm Pulse Ox 98 96 100 Oxygen Delivery Method Room Air Room Air Room Air 02/14/25 03:00 02/14/25 03:30 02/14/25 03:53 Temperature 97.6 F L Temperature Source Temporal Pulse Rate 94 95 99 Pulse Strength Respiratory Rate 21 H 22 H 23 H Respiratory Effort Respiratory Depth Respiratory Pattern Blood Pressure 153/86 H 151/73 H 152/106 H Blood Pressure Mean 108 99 121 Blood Pressure Source Monitor Monitor Blood Pressure Position Semi-Fowlers Semi-Fowlers Blood Pressure Location Left Arm Left Arm Pulse Ox 100 97 99 Oxygen Delivery Method Room Air Room Air Room Air 02/14/25 04:00 02/14/25 04:00 02/14/25 04:00 Temperature Temperature Source Pulse Rate 99 94 Pulse Strength Respiratory Rate 22 H Respiratory Effort Normal Non-Labored Respiratory Depth Normal Respiratory Pattern Tachypnea Blood Pressure 152/106 H Blood Pressure Mean 121 Blood Pressure Source Blood Pressure Position Blood Pressure Location Pulse Ox 99 Oxygen Delivery Method Room Air Room Air 02/14/25 04:15 02/14/25 04:30 02/14/25 04:45 Temperature Temperature Source Pulse Rate Pulse Strength Respiratory Rate Respiratory Effort Respiratory Depth Respiratory Pattern Blood Pressure 142/92 H 146/88 H 142/92 H Blood Pressure Mean 108 107 108 Blood Pressure Source Blood Pressure Position Blood Pressure Location Pulse Ox Oxygen Delivery Method 02/14/25 04:53 02/14/25 05:00 02/14/25 06:00 Temperature 97.2 F L 97.1 F L Temperature Source Temporal Temporal Pulse Rate 99 97 95 Pulse Strength Respiratory Rate 27 H 23 H 13 Respiratory Effort Respiratory Depth Respiratory Pattern Blood Pressure 134/84 H 134/84 H 128/83 H Blood Pressure Mean 100 100 98 Blood Pressure Source Monitor Monitor Blood Pressure Position Semi-Fowlers Semi-Fowlers Blood Pressure Location Left Arm Left Arm Pulse Ox 98 100 99 Oxygen Delivery Method Room Air Room Air Room Air 02/14/25 06:00 02/14/25 06:55 02/14/25 06:55 Temperature 97.1 F L Temperature Source Temporal Pulse Rate 95 101 H Pulse Strength Respiratory Rate 13 24 H Respiratory Effort Respiratory Depth Respiratory Pattern Blood Pressure 128/83 H 124/83 H Blood Pressure Mean 98 96 Blood Pressure Source Monitor Blood Pressure Position Semi-Fowlers Blood Pressure Location Left Arm Pulse Ox 99 98 95 Oxygen Delivery Method Room Air Room Air Room Air 02/14/25 07:00 02/14/25 07:15 02/14/25 07:30 Temperature Temperature Source Pulse Rate 100 109 H 103 H Pulse Strength Respiratory Rate 16 14 Respiratory Effort Respiratory Depth Respiratory Pattern Blood Pressure 124/83 H 109/86 H 110/66 Blood Pressure Mean 96 93 80 Blood Pressure Source Monitor Monitor Blood Pressure Position Semi-Fowlers Semi-Fowlers Semi-Fowlers Blood Pressure Location Left Arm Left Arm Left Arm Pulse Ox 98 98 Oxygen Delivery Method Room Air Room Air 02/14/25 07:45 02/14/25 08:00 02/14/25 08:00 Temperature 98.9 F Temperature Source Temporal Pulse Rate 106 H 95 Pulse Strength Respiratory Rate 18 Respiratory Effort Normal Non-Labored Respiratory Depth Normal Respiratory Pattern Tachypnea Blood Pressure 130/84 H 124/67 H Blood Pressure Mean 99 86 Blood Pressure Source Monitor Monitor Blood Pressure Position Semi-Fowlers Semi-Fowlers Blood Pressure Location Left Arm Left Arm Pulse Ox 98 Oxygen Delivery Method Room Air Room Air 02/14/25 08:15 02/14/25 08:30 02/14/25 08:45 Temperature Temperature Source Pulse Rate 96 95 95 Pulse Strength Respiratory Rate Respiratory Effort Respiratory Depth Respiratory Pattern Blood Pressure 126/88 H 132/75 H 128/81 H Blood Pressure Mean 100 94 96 Blood Pressure Source Monitor Monitor Monitor Blood Pressure Position Semi-Fowlers Semi-Fowlers Semi-Fowlers Blood Pressure Location Left Arm Left Arm Left Arm Pulse Ox Oxygen Delivery Method 02/14/25 09:00 02/14/25 09:15 02/14/25 09:19 Temperature Temperature Source Pulse Rate 96 93 Pulse Strength Normal (2+) Respiratory Rate 20 H Respiratory Effort Respiratory Depth Respiratory Pattern Blood Pressure 115/80 123/85 H Blood Pressure Mean 91 97 Blood Pressure Source Monitor Monitor Blood Pressure Position Semi-Fowlers Sitting Blood Pressure Location Left Arm Left Arm Pulse Ox 97 Oxygen Delivery Method Room Air 02/14/25 09:30 02/14/25 09:53 02/14/25 10:00 Temperature 98.7 F Temperature Source Temporal Pulse Rate 98 98 90 Pulse Strength Respiratory Rate 16 16 Respiratory Effort Respiratory Depth Respiratory Pattern Blood Pressure 120/69 120/69 127/73 H Blood Pressure Mean 86 86 91 Blood Pressure Source Monitor Monitor Monitor Blood Pressure Position Sitting Semi-Fowlers Sitting Blood Pressure Location Left Arm Right Arm Left Arm Pulse Ox 98 98 Oxygen Delivery Method Room Air Room Air 02/14/25 10:53 02/14/25 11:04 02/14/25 11:53 Temperature 98.8 F Temperature Source Temporal Pulse Rate 91 88 Pulse Strength Respiratory Rate 18 16 Respiratory Effort Normal Non-Labored Respiratory Depth Normal Respiratory Pattern Tachypnea Blood Pressure 125/93 H 151/108 H Blood Pressure Mean 103 122 Blood Pressure Source Monitor Monitor Blood Pressure Position Sitting Sitting Blood Pressure Location Left Arm Left Arm Pulse Ox 97 96 Oxygen Delivery Method Room Air Room Air Room Air 02/14/25 12:53 02/14/25 13:53 02/14/25 14:53 Temperature 98.8 F Temperature Source Core Pulse Rate 89 88 91 Pulse Strength Respiratory Rate 22 H 20 H 18 Respiratory Effort Respiratory Depth Respiratory Pattern Blood Pressure 139/80 H 113/77 147/82 H Blood Pressure Mean 99 89 103 Blood Pressure Source Monitor Monitor Monitor Blood Pressure Position Semi-Fowlers Semi-Fowlers Semi-Fowlers Blood Pressure Location Left Arm Left Arm Right Arm Pulse Ox 98 97 94 Oxygen Delivery Method Room Air Room Air Room Air 02/14/25 15:06 02/14/25 16:45 02/14/25 17:00 Temperature Temperature Source Pulse Rate 89 88 Pulse Strength Respiratory Rate 24 H 16 Respiratory Effort Normal Non-Labored Respiratory Depth Normal Respiratory Pattern Tachypnea Blood Pressure 144/96 H 100/53 L Blood Pressure Mean 112 66 Blood Pressure Source Monitor Monitor Blood Pressure Position Blood Pressure Location Pulse Ox 98 99 Oxygen Delivery Method Room Air Room Air Room Air 02/14/25 17:45 02/14/25 18:00 02/14/25 18:53 Temperature Temperature Source Pulse Rate 87 94 97 Pulse Strength Respiratory Rate 19 H 26 H 22 H Respiratory Effort Respiratory Depth Respiratory Pattern Blood Pressure 101/88 H 144/79 H 145/67 H Blood Pressure Mean 94 99 93 Blood Pressure Source Monitor Monitor Monitor Blood Pressure Position Blood Pressure Location Pulse Ox 97 99 98 Oxygen Delivery Method Room Air Room Air Room Air 02/14/25 19:00 02/14/25 19:53 02/14/25 20:00 Temperature Temperature Source Pulse Rate 89 89 Pulse Strength Respiratory Rate 21 H Respiratory Effort Normal Non-Labored Respiratory Depth Normal Respiratory Pattern Normal Blood Pressure 153/91 H Blood Pressure Mean 111 Blood Pressure Source Monitor Blood Pressure Position Semi-Fowlers Blood Pressure Location Left Arm Pulse Ox 98 Oxygen Delivery Method Room Air Room Air 02/14/25 21:00 Temperature Temperature Source Pulse Rate 88 Pulse Strength Respiratory Rate 19 H Respiratory Effort Respiratory Depth Respiratory Pattern Blood Pressure 134/53 H Blood Pressure Mean 80 Blood Pressure Source Monitor Blood Pressure Position Semi-Fowlers Blood Pressure Location Left Arm Pulse Ox 98 Oxygen Delivery Method Room Air Weight Weight: 153.2 kg Body Mass Index (BMI) 44.7 EEG Results Procedure Details EEG Procedure Details: JOYCE VILA is a 59 year old M with a past medical history of , who presents for evaluation of Electroencephalogram on DATE at TIME Lab / Micro Data 02/14/25 04:11 02/14/25 04:11 Labs: Laboratory Results - last 24 hr 02/13/25 22:01: Troponin T Hi Sens 2 Hr 90 H* 02/13/25 22:50: Troponin T Hi Sens 4Hr 121 H* 02/13/25 23:44: POC Glucose 159 H 02/14/25 04:11: WBC 12.6 H, RBC 5.09, Hgb 15.4, Hct 44.8, MCV 88.0, MCH 30.3, MCHC 34.4, RDW Std Deviation 43.6, RDW Coeff of Chepe 13.4, Plt Count 160, MPV 10.3, Immature Gran % (Auto) 1.200 H, Neut % (Auto) 82.5 H, Lymph % (Auto) 8.7 L, [place] % (Auto) 6.6, Eos % (Auto) 0.6, Baso % (Auto) 0.4, Absolute Neuts (auto) 10.4 H, Absolute Lymphs (auto) 1.10, Nucleated RBC % 0, Sodium 135, Potassium 4.2, Chloride 100, Carbon Dioxide 22.0, Anion Gap 13, BUN 11, Creatinine 0.83, Estim Creat Clear Calc 144.38, Est GFR (MDRD) Non-Af 100, BUN/Creatinine Ratio 12.9, Glucose 395 H, Hemoglobin A1c 11.9 H, Calcium 9.2, Total Bilirubin 0.51, AST 28, ALT 21, Alkaline Phosphatase 103, Total Protein 6.6, Albumin 3.8, Globulin 2.8, Albumin/Globulin Ratio 1.4, Triglycerides 526 H, Cholesterol 228 H, LDL Cholesterol, Calc 93, VLDL Cholesterol 105 H, HDL Cholesterol 30 L, Cholesterol/HDL Ratio 7.65, TSH 1.090 02/14/25 12:35: POC Glucose 295 H Rhythm Strip Rhythm Strip: Sinus Rhythm Rate: 92 Ectopy: None and PAC(s) Imaging Radiology Impression Echocardiogram 02/13/25 21:10 Interpretation Summary Normal LV size. Left ventricular systolic function is normal. Moderately dilated aortic root. Mild concentric left ventricular hypertrophy. The left ventricular ejection fraction is 55 %. Mild focal aortic valve calcification. Ordering Physician: Cristiana Gonzalez Referring Physician: GOLDIE YUN Performed By: Shaniqua Vick RCS Brain CT 02/13/25 22:11 IMPRESSION: No intracerebral or extra-axial hemorrhage. No acute cerebrovascular insult. If clinical symptoms persist, further evaluation with MRI may be considered as clinically warranted. Reading Location: [id number] Brain MRI 02/14/25 06:00 IMPRESSION: Acute infarct in the right MCA territory centered in the right insula. No acute hemorrhage. Reading Location: [id number] Active Medications Active Medications Active Medications: Current Medications Generic Name Dose Route Start Last Admin Trade Name Freq PRN Reason Stop Dose Admin Acetaminophen 650 mg 02/13/25 21:10 Acetaminophen 325 Mg Tablet PO Q4H PRN PRN Fever, pain 1-03/04 Al Hydroxide/Mg Hydroxide 30 ml 02/13/25 21:10 Mag Hydrox/Al Hydrox/Simeth 30 Ml Udc PO Q6H PRN PRN Gastric Burning Albuterol Sulfate 2.5 mg 02/13/25 21:10 Albuterol 2.5 Mg/3 Ml Vial.Neb. INHALATION Q2H PRN PRN Dyspnea, wheezing Glucagon 1 mg 02/13/25 21:10 Glucagon 1 Mg/Ml Syringe IM X1 PRN HYPOGLYCEMIA Protocol Guaifenesin 10 ml 02/13/25 21:10 Guaifenesin 10 Ml Udc (200mg/10ml) PO Q4H PRN PRN COUGH Dextrose 250 mls @ 0 mls/hr 02/13/25 21:10 Dextrose 10%-Water IV .Q0M PRN HYPOGLYCEMIA Protocol As Directed Nicardipine HCl 25 mg/ Sodium 250 mls @ 50 mls/hr 02/13/25 21:20 02/14/25 21:07 Chloride CONT INF Not Given .Q5H TESSA Protocol 5 MG/HR Insulin Human Lispro 0 unit 02/13/25 22:00 02/14/25 19:29 Insulin Lispro 100 Unit/Ml Insuln.Pen SC Not Given ACHS TESSA Protocol Melatonin 3 mg 02/13/25 21:10 Melatonin 3 Mg Tablet PO QHS PRN PRN INSOMNIA Ondansetron HCl 4 mg 02/13/25 21:10 Ondansetron 4 Mg/2 Ml Vial IV Q8H PRN PRN NAUSEA/VOMITING Senna/Docusate Sodium 2 tablet 02/13/25 21:10 Senna/Docusate Sodium 1 Tablet PO BID PRN PRN Constipation Sodium Chloride 10 - 40 ml 02/13/25 21:11 0.9% Saline Lock 10 Ml Syringe IV UD PRN SALINE FLUSH NIHSS NIHSS Nursing Documentation NIHSS Nursing Documentation: Thrombolytic: Vital Signs & NIHSS Start: 02/13/25 19:18 Text: Assess and document vital signs and NIHSS Status: Active within 15 minutes of tenecteplase bolus administration Freq: [id number] Protocol: Activity Type Activity Date Activity User E-sign Co-sign Detail Recorded Client Recorded Date Recorded By Document 02/14/25 19:53 TD [id number] 02/14/25 20:34 TD 02/14/25 19:53 Vital Signs [Pulse] -Pulse Rate (60-100) 89 -Pulse Location Monitor [Respirations] -Respiratory Rate (12-18) 21 H -Respiratory rate source Monitor -Pulse Oximetry 98 -Oxygen Delivery Method Room Air [Blood Pressure] -Blood Pressure (90/60-120/80) 153/91 H -Blood Pressure Mean 111 -Source Monitor -Position Semi-Fowlers -Blood Pressure Location Left Arm -Is the SBP > or = 180 No -Is the DBP > or = 105 No NIH Stroke Scale [NIHSS] A score of 0 is normal or asymptomatic . Total possible score is 42. Inpatient: RN or Physician to activate a stroke alert for onset of new stroke symptoms or with NIHSS increase >/= 3 points. Following change in neurological status, NIHSS will be performed per physician order or more frequently PRN. -1a. Level of Consciousness 0 - Alert; keenly responsive -1b. LOC Questions 0 - Answers BOTH questions correctly -1c. LOC Commands 0 - Performs BOTH tasks correctly -2. Best Gaze 0 - Normal -3. Visual 0 - No visual loss -4. Facial Palsy 1 - Minor paralysis ( flattened nasolabial fold , asymmetry on smiling) -5a. Left Arm 0 - No drift; arm holds 90 ( or 45) degrees for full 10 seconds -5b. Right Arm 0 - No drift; arm holds 90 ( or 45) degrees for full 10 seconds -6a. Left Leg 0 - No drift; leg holds 30- degree position for full 5 seconds -6b. Right Leg 0 - No drift; leg holds 30- degree position for full 5 seconds -7. Limb Ataxia 0 - Absent -8. Sensory 0 - Normal; no sensory loss -9. Best Language 0 - No aphasia; normal -10. Dysarthria 1 = Mild-to- moderate dysarthria; -11. Extinction and Inattention 0 - No abnormality -Total 2 Query Text:A score of 0 is normal or asymptomatic. Total possible score is 42 . ED: Notify Physician for NIHSS increase by > / = 3 points. Inpatient: RN or Physician to activate a stroke alert for NIHSS increase of > / = 3 points.
[2025-02-14] MEDS: 0.9% Saline Lock 10 ML Syringe IV (22:36)
[2025-02-15] VITALS (12 sets, daily range): BP systolic 121–157; BP diastolic 69–97; PULSE 83–92; RESP 16–23; TEMP 36.6–37.1; O2SAT 95–100; BMI 44.1
--- NOTE | 2025-02-15 07:00 | PN.HOSP_ITS ---
Reason for Visit Chief Complaint: L sided weakness, facial droop, slurred speech. Subjective Subjective Left facial droop and left arm weakness improved. Objective Data Objective Data Vital Signs: Vital Signs Temp Pulse Resp BP Pulse Ox O2 Del Method 37.1 C 90 23 H 157/93 H 95 Room Air 02/14/25 14:53 02/15/25 06:00 02/15/25 06:00 02/15/25 06:00 02/15/25 06:00 02/15/25 06:00 Oxygen Delivery Method Room Air Weight: 151.1 kg Body Mass Index (BMI) 44.1 Intake & Output: Intake and Output for Last 24 Hours 02/13/25 02/14/25 02/15/25 23:59 23:59 23:59 Intake Total 2177.91 / 2177.91 Output Total 900 / 1700 4825 / 4825 750 / 750 Balance -900 / -1700 -2647.09 / -2647.09 -750 / -750 Lab / Micro Data 02/14/25 04:11 02/14/25 04:11 Labs: Laboratory Results - last 24 hr 02/13/25 23:44: POC Glucose 159 H 02/14/25 12:35: POC Glucose 295 H 02/14/25 22:28: POC Glucose 266 H Radiography Diagnostic Testing: Radiology Impression Echocardiogram 02/13/25 21:10 Interpretation Summary Normal LV size. Left ventricular systolic function is normal. Moderately dilated aortic root. Mild concentric left ventricular hypertrophy. The left ventricular ejection fraction is 55 %. Mild focal aortic valve calcification. Ordering Physician: Cristiana Gonzalez Referring Physician: GOLDIE YUN Performed By: Shaniqua Vick RCS Brain MRI 02/14/25 06:00 IMPRESSION: Acute infarct in the right MCA territory centered in the right insula. No acute hemorrhage. Reading Location: [facility] Rhythm Strip Rhythm Strip: Sinus Rhythm Rate: 92 Ectopy: None and PAC(s) Physical Exam Const alert and no apparent distress HEENT head/scalp atraumatic and moist oral mucous membranes HEENT Narrative: no facial droop. Extremity normal to inspection and no clubbing, cyanosis or edema Neuro moves all extremities and no focal motor deficits Sensorium / Orientation: awake and alert Assessment & Plan Assessment/Plan (1) Acute CVA (cerebrovascular accident): PLAN: Plan Acute CVA: * Patient w acute left-sided facial droop, left-sided hemiplegia. Now resolved. * s/p tenectaplase on 02/13 * MRI brain shows acute infarct in the right MCA territory centered in the right insula. No hemorrhage. * PT/OT/Speech/Nutrition evaluation per protocol. * Permissive HTN * neurology consult: ASA 325/d, statin * echo shows an EF 55% Chronic conditions: * Hypertension: Will maintain permissive HTN per stroke protocol status post neck to place administration with PRN agents per stroke order set. * Hyperlipidemia: Will continue home statin regimen, FLP in AM. * Diabetes mellitus type I with hyperglycemia I: Hold oral home regimen, continue home insulin regimen, ADA diet if cleared for oral intake following stroke protocol initiated bedside swallow evaluation, accu checks w/ ISS, HgbA1c requested, nutrition consulted per protocol. * Tobacco Abuse: Encouraged cessation, inpatient consultation per RT, NR if desired. * Morbid Obesity: Weight loss and lifestyle changes encouraged, nutrition consulted. * JACLYN: Patient does have PAP therapy at home but notes he does not use it, discussed at length and amenable to using CPAP currently. Encouraged continued use at discharge. DVT prophylaxis: SCDs given TNK usage. NIHSS NIHSS Nursing Documentation NIHSS Nursing Documentation: Thrombolytic: Vital Signs & NIHSS Start: 02/13/25 19:18 Text: Assess and document vital signs and NIHSS Status: Active within 15 minutes of tenecteplase bolus administration Freq: [id number] Protocol: Activity Type Activity Date Activity User E-sign Co-sign Detail Recorded Client Recorded Date Recorded By Document 02/15/25 05:00 TD 10.10.25.7 02/15/25 05:17 TD 02/15/25 05:00 Vital Signs [Pulse] -Pulse Rate (60-100) 92 -Pulse Location Monitor [Respirations] -Respiratory Rate (12-18) 22 H -Respiratory rate source Monitor -Pulse Oximetry 99 -Oxygen Delivery Method Room Air [Blood Pressure] -Blood Pressure (90/60-120/80) 137/91 H -Blood Pressure Mean (mm Hg) 106 -Source Monitor -Position Semi-Fowlers -Blood Pressure Location Left Arm -Is the SBP > or = 180 No -Is the DBP > or = 105 No NIH Stroke Scale [NIHSS] A score of 0 is normal or asymptomatic . Total possible score is 42. Inpatient: RN or Physician to activate a stroke alert for onset of new stroke symptoms or with NIHSS increase >/= 3 points. Following change in neurological status, NIHSS will be performed per physician order or more frequently PRN. -1a. Level of Consciousness 0 - Alert; keenly responsive -1b. LOC Questions 0 - Answers BOTH questions correctly -1c. LOC Commands 0 - Performs BOTH tasks correctly -2. Best Gaze 0 - Normal -3. Visual 0 - No visual loss -4. Facial Palsy 0 - Normal symmetrical movements -5a. Left Arm 0 - No drift; arm holds 90 ( or 45) degrees for full 10 seconds -5b. Right Arm 0 - No drift; arm holds 90 ( or 45) degrees for full 10 seconds -6a. Left Leg 0 - No drift; leg holds 30- degree position for full 5 seconds -6b. Right Leg 0 - No drift; leg holds 30- degree position for full 5 seconds -7. Limb Ataxia 0 - Absent -8. Sensory 0 - Normal; no sensory loss -9. Best Language 0 - No aphasia; normal -10. Dysarthria 0 - Normal -11. Extinction and Inattention 0 - No abnormality -Total 0 Query Text:A score of 0 is normal or asymptomatic. Total possible score is 42 . ED: Notify Physician for NIHSS increase by > / = 3 points. Inpatient: RN or Physician to activate a stroke alert for NIHSS increase of > / = 3 points.
--- NOTE | 2025-02-15 11:23 | DS.PCM_ITS ---
Providers Date of Admission: 02/13/25 Primary Care Physician: Yossi Serrato, NUCLEAR RADIATION ENGINEER-C Consultations 02/13/25 21:10 Consult: Tele-Neurology Routine Consulting Provider: [facility] Reason for Consult: Acute Stroke Post Tenecteplase administration EMERGENT Consult: No MD Notified: Yes Date Notified: 02/13/25 Time Notified: 08:28 Method of Notification: Answering Service Nursing Unit Staff Notify [facility] of Tele-Neurology Consult: Yes Reason For Visit: CVA S/P TNK Diagnosis Discharge Diagnosis (1) Acute CVA (cerebrovascular accident): Status: Acute Code(s): I63.9 - Cerebral infarction, unspecified Plan Acute CVA: * Patient w acute left-sided facial droop, left-sided hemiplegia. Now resolved. * s/p tenectaplase on 02/13 * MRI brain shows acute infarct in the right MCA territory centered in the right insula. No hemorrhage. * PT/OT/Speech/Nutrition evaluation per protocol. * Permissive HTN * neurology consult: ASA 325/d, statin * echo shows an EF 55% Chronic conditions: * Hypertension: Will maintain permissive HTN per stroke protocol status post neck to place administration with PRN agents per stroke order set. * Hyperlipidemia: Will continue home statin regimen, FLP in AM. * Diabetes mellitus type I with hyperglycemia I: Hold oral home regimen, continue home insulin regimen, ADA diet if cleared for oral intake following stroke protocol initiated bedside swallow evaluation, accu checks w/ ISS, HgbA1c requested, nutrition consulted per protocol. * Tobacco Abuse: Encouraged cessation, inpatient consultation per RT, NR if desired. * Morbid Obesity: Weight loss and lifestyle changes encouraged, nutrition consulted. * JACLYN: Patient does have PAP therapy at home but notes he does not use it, discussed at length and amenable to using CPAP currently. Encouraged continued use at discharge. DVT prophylaxis: SCDs given TNK usage. Medications at Discharge Home Medications aspirin 325 mg tablet 325 mg PO BREAKFAST #0 tabs 02/15/25 atorvastatin 80 mg tablet 80 mg PO QHS #30 tabs 02/15/25 insulin glargine 100 unit/mL (3 mL) subcutaneous pen, sensor 10 unit (0.1 mL) subcut QPM #15 mL 02/15/25 pen needle, diabetic 29 gauge #100 ea 02/15/25 Hospital Course Operations None Procedures 2-D Echocardiogram Summary of Care Provided Minutes Spent on Discharge: 32 Hospital Course: Patient presents with left-sided weakness facial droop and slurred speech. Concern for stroke and patient underwent TNK. Patient had this the . On the , symptoms are improvement still having some left arm weakness as well as left facial droop. On the , his symptoms are practically resolved he has no further left facial weakness his left arm is slightly weaker than his right but but doing much better overall. Patient was seen by neurology who recommends medical treatment at this time to follow-up with neurology as outpatient. Patient also has diabetes with an A1c of greater than 11. Patient will be discharged with insulin glargine and glucometer. Weight / BMI Weight Weight: 151.1 kg Body Mass Index (BMI) 44.1 ABG / Lab / Microbiology Data 02/14/25 04:11 02/14/25 04:11 Laboratory: Laboratory Results - last 24 hr 02/14/25 06:58: POC Glucose 131 H 02/14/25 12:35: POC Glucose 295 H 02/14/25 22:28: POC Glucose 266 H 02/15/25 07:47: POC Glucose 272 H Radiography Diagnostic Testing: Radiology Impression Echocardiogram 02/13/25 21:10 Interpretation Summary Normal LV size. Left ventricular systolic function is normal. Moderately dilated aortic root. Mild concentric left ventricular hypertrophy. The left ventricular ejection fraction is 55 %. Mild focal aortic valve calcification. Ordering Physician: Cristiana Gonzalez Referring Physician: YOSSI SERRATO Performed By: Shaniqua Vick RCS Brain MRI 02/14/25 06:00 IMPRESSION: Acute infarct in the right MCA territory centered in the right insula. No acute hemorrhage. Reading Location: [id number] Instructions DC O2, CPAP, BIPAP Needs Home O2 Discharge instructions: No Meaningful Use Info Meaningful Use Meaningful Use Diagnoses (Choose all that apply): Ischemic CVA CVA Therapy Assessed for PT,OT and/or ST?: Yes Ischemic Stroke Antithrombotic order at d/c?: Yes Dx of Atrial fib/flutter?: No Anticoagulant at discharge?: No Reason anticoagulant not ordered: Treatment not Indicated Statins at discharge?: Yes If patient is 75 or younger, pt will be discharged on HIGH intensity statin.: Y es Primary Dx Acute Ischemic CVA?: Yes IV thrombolytic ordered during stay?: Yes Discharge Plan Admission Admit Date/Time: 02/13/25 19:48 Primary Reason for Your Visit: Stroke Attending Provider: Bayron Louis Primary Care Provider: Yossi Serrato NUCLEAR RADIATION ENGINEER Consulting Providers: Cristiana Gonzalez; Jose Conklin; Candelario Rodriguez; Gita Huang; Gissel Parker; Vicky Coleman; Juan Manuel Boswell; Smitha Brown; Aneesh Berg; Esvin Singleton; Guerrero Moore; Omayra Nelson; Tara Quach; Raymond Kurtz; Windy Paulino; Victorino Martinez; John Toure; Hair Nur; Celi Manning; Danny Penn; Ceci Patel; Fito London Discharge Orders/Prescriptions Prescriptions: New atorvastatin 80 mg Tablet 80 mg PO QHS Qty: 30 0RF aspirin 325 mg Tablet 325 mg PO BREAKFAST Qty: 0 0RF insulin glargine 100 unit/mL (3 mL) insulin pen, sensor 10 unit subcut QPM Qty: 15 0RF (DME) pen needle, diabetic 29 gauge needle See Rx Instructions .Route Qty: 100 0RF Rx Instructions: As directed Discontinued blood pressure support PO DAILY Blood Sugar Support 150 mcg- 70 mg capsule PO Other Ambulatory Orders: Glucometer (Routine) Timeframe: 1 Day Location: Determined by Patient Ordered By: Dr. Bayron Louis Referrals / Follow Up: [facility] [Provider Group] - Within 1 Month Yossi Serrato NP, NUCLEAR RADIATION ENGINEER-C [Primary Care Provider, Family Practice] - Within 2 Weeks Disposition Disposition (needs filled in before D/C Order can be placed): Home, Self Care Charges/Coding Visit Charges Inpatient E&M: 87096 Disch Hosp >30min
--- NOTE | 2025-02-15 12:06 | PHA.DC_ITS ---
Pharmacy [facility] Counseling Pharmacy Service has performed discharge medication reconciliation and counseling for this patient. Patient requested delivery, this [facility] called retail, spoke to Manish and requested delivery. 1. ASPIRIN 325MG PO DAILY 2. ATORVASTATIN 80MG PO QHS 3. INSULIN GLARGINE 10UNITS SC QPM/PEN NEEDLES The patient's discharge medication list was reviewed for discrepancies and discrepancies were resolved. The patient was counseled on the following discharge medications and changes in medications for homegoing were reviewed. The Reason for Use, instructions for use, and potential side effects were reviewed for all new medications. The patient's questions regarding all of their medications were answered. The patient was able to verbally demonstrate an understanding of their discharge medications. Medications at Discharge Home Medications aspirin 325 mg tablet 325 mg PO BREAKFAST #0 tabs 02/15/25 atorvastatin 80 mg tablet 80 mg PO QHS #30 tabs 02/15/25 insulin glargine 100 unit/mL (3 mL) subcutaneous pen, sensor 10 unit (0.1 mL) subcut QPM #15 mL 02/15/25 pen needle, diabetic 29 gauge #100 ea 02/15/25
--- NOTE | 2025-02-15 12:39 | CASEMGMT ---
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 He states therapy told him he is doing good today. No further discharge needs anticipated. SHARON Serrato Original Note: Social Work SW is discharged today. SW checked on the cost of pt's meds, they are $158.17. SW met w/pt and , informed them of the cost of the medication, they can afford the cost of the medications. Pt asked if he can get the medications every month here for that cost. SW explained if the physician called in refills, that would be the self pay cost each month. SW emphasized however if the physician did not call in refills, then he will want to follow up w/a PCP. SW suggested they follow up w/[facility], so pt can continue to get the prescriptions he needs. Pt also had questions about the medication, SW called the retail pharmacy, asked them to bring up the meds, pt will pay for them, and that pt has questions. SW also gave a script to pt and for a glucometer and strips, let them know the cost at [facility] is $16 for the meter and $8 for the strips. SW encouraged them to follow up w/this as well. RN informed that pharmacy will bring up the medications and they will pay for them. No further social service needs, pt home today. SHARON Serrato
== END 2025-02-15 16:13 | disposition home or self-care (01) | DRG 65 ==
LOC: ED 20:12 → ICU 20:20 → PCU 02-15 08:42
PROVIDERS: Admitting Provider Family Medicine; Emergency Provider Emergency Medicine; PCP Nurse Practitioner Family
DX: I63.511 Cerebral infarction due to unspecified occlusion or stenosis of right middle cerebral artery (principal); I16.1 Hypertensive emergency; I69.354 Hemiplegia and hemiparesis following cerebral infarction affecting left non-dominant side; Z68.41 Body mass index [BMI] 40.0-44.9, adult; E10.65 Type 1 diabetes mellitus with hyperglycemia; E66.01 Morbid (severe) obesity due to excess calories; E78.5 Hyperlipidemia, unspecified; I10 Essential (primary) hypertension; F17.290 Nicotine dependence, other tobacco product, uncomplicated; G47.33 Obstructive sleep apnea (adult) (pediatric); R29.703 NIHSS score 3; R79.89 Other specified abnormal findings of blood chemistry; Z79.899 Other long term (current) drug therapy; Z99.89 Dependence on other enabling machines and devices
CPT/HCPCS: 51702; 70450; 70496; 70498; 70551; 71045; 80048; 80053; 80061; 82962; 83036; 83735; 84443; 84484; 85025; 85610; 85730; 92523; 92610; 93005; 93306; 97161; 97166; 97802; 99285; 99406; J3101; Q9957; Q9967; A4216; C8929